=== PATIENT | female | born 1940 | race Caucasian/White ===

== ENCOUNTER → 2017-09-23 | Outpatient (CLI) | payer MEDICARE, MEDICAID, SELFPAY | PROVIDERS: Visit Provider Internal Medicine Nephrology | DX: N18.3 Chronic kidney disease, stage 3 (moderate) (principal) | CPT/HCPCS: 36415; 80069; 81001; 82306; 82570; 83970; 84155; 85025 ==

== ENCOUNTER → 2017-09-30 13:27 | Outpatient (POV) | payer MEDICARE, MEDICAID, SELFPAY | PROVIDERS: PCP Family Medicine; Visit Provider Internal Medicine Nephrology | DX: Z00.00 Encounter for general adult medical examination without abnormal findings (principal) ==

== ENCOUNTER → 2017-10-18 11:19 | Outpatient (POV) | payer MEDICARE, MEDICAID, SELFPAY ==
[2017-10-18 12:28] LABS: Eosinophils # 0.3 K/mm3 (0.0-0.4); Eosinophils % 8.7 % (0.1-12.0); Hematocrit 31.3 % (37.0-47.0); Hemoglobin 9.8 g/dL (12.2-16.2); Lymphocytes # 0.5 K/mm3 (0.7-4.5); Lymphocytes % 13.7 K/mm3 (10-50); Mean Corpuscular HGB Conc 31.3 g/dL (31.8-35.4); Mean Corpuscular Hemoglobin 30.9 pg (27.0-31.2); Mean Corpuscular Volume 98.5 fl (81-99); Mean Platelet Volume 8.3 fl (7.4-10.4); Monocytes # 0.2 K/mm3 (0.1-1.0); Monocytes % 4.2 % (1.7-9.3); Neutrophils # 2.8 K/mm3 (1.8-7.8); Neutrophils % 72.4 % (37.0-80.0); Platelet Count 147 K/mm3 (142-424); Red Blood Count 3.18 M/mm3 (4.20-5.40); Red Cell Distribution Width 14.4 % (11.5-17.5); White Blood Count 3.8 K/mm3 (4.8-10.8)
[2017-10-18 12:31] LABS: INR 1.01 (0.9-1.1); Prothrombin Time 10.9 seconds (9.4-11.8)
[2017-10-18 12:43] LABS: Ammonia 15 umol/L (19-54)
[2017-10-18 13:35] LABS: Albumin Level 2.8 gm/dL (3.4-5.0); Anion Gap 13.1 mEq/L (5-15); Blood Urea Nitrogen 17 mg/dL (7-18); Calcium 8.3 mg/dL (8.5-10.1); Carbon Dioxide 26 mmol/L (21.0-32.0); Chloride 104 mmol/L (98-107); Creatinine,Serum 1.31 mg/dL (0.55-1.02); Estimated Glomerular Filt Rate 39 ml/min (>60); GFR (African American) 48 ML/MIN (>60); Glucose 96 mg/dL (74-106); Potassium 4.1 mmoL/L (3.5-5.1); Sodium 139 mmol/L (136-145)
[2017-10-18 14:29] LABS: Alanine Aminotransferase 24 U/L (12-78); Albumin/Globulin Ratio 0.8 (1.1-1.8); Alkaline Phosphatase 77 U/L (46-116); Aspartate Amino Transferase 29 U/L (15-37); Bilirubin,Total 0.6 mg/dL (0.2-1.0); Ferritin 34 ng/mL (8-388); Globulin 3.7 gm/dl (1.3-3.2); Total Protein,Serum 6.5 gm/dL (6.4-8.2)
[2017-10-19 08:28] LABS: Iron 28 ug/dL (27-139); UIBC 254 ug/dL (118-369)
[2017-10-19 13:37] LABS: Iron Saturation 10 % (15-55)
[2017-10-21 08:51] LABS: Zinc 54 ug/dL (56-134)
== END ==
PROVIDERS: Visit Provider Nurse Practitioner Acute Care
DX: E78.4 Other hyperlipidemia (principal)
CPT/HCPCS: 36415; 80053; 82140; 82728; 83550; 84630; 85025; 85610

== ENCOUNTER → 2017-10-26 13:16 | Outpatient (CLI) | payer MEDICARE, MEDICAID, SELFPAY ==
--- NOTE | 2017-10-26 13:28 | US_ITS ---
US abdomen limited CLINICAL INDICATION: ITS.REASON: CIRRHOSIS, ASCITES ORDERING PHYSICIAN: Leydi Floyd PATIENT AGE: 77 years COMPARISON: None FINDINGS: The patient was scheduled for ultrasound-guided paracentesis. However, there was only a small amount of ascites noted in the right paracolic gutter. There was not a significant amount of ascites that would preclude paracentesis IMPRESSION: Small amount of ascites noted in the right paracolic gutter
== END ==
PROVIDERS: PCP Family Medicine; Visit Provider Nurse Practitioner Acute Care
DX: R18.8 Other ascites (principal); K74.60 Unspecified cirrhosis of liver
CPT/HCPCS: 49083; 76705

== ENCOUNTER → 2017-11-29 08:42 | Outpatient (POV) | payer MEDICARE, MEDICAID, SELFPAY | PROVIDERS: PCP Family Medicine; Visit Provider Nurse Practitioner Acute Care | DX: Z00.00 Encounter for general adult medical examination without abnormal findings (principal) ==

== ENCOUNTER → 2018-01-14 09:46 | Outpatient (CLI) | payer MEDICARE, MEDICAID, SELFPAY ==
[2018-01-14 10:21] LABS: Basophils % 0.7 % (0.1-2.0); Eosinophils # 0.5 K/mm3 (0.0-0.4); Eosinophils % 12.8 % (0.1-12.0); Hematocrit 36.6 % (37.0-47.0); Hemoglobin 11.2 g/dL (12.2-16.2); Lymphocytes # 0.5 K/mm3 (0.7-4.5); Lymphocytes % 14.3 K/mm3 (10-50); Mean Corpuscular HGB Conc 30.5 g/dL (31.8-35.4); Mean Corpuscular Hemoglobin 30.8 pg (27.0-31.2); Mean Platelet Volume 7.7 fl (7.4-10.4); Monocytes # 0.2 K/mm3 (0.1-1.0); Monocytes % 5.2 % (1.7-9.3); Neutrophils # 2.4 K/mm3 (1.8-7.8); Neutrophils % 66.9 % (37.0-80.0); Platelet Count 132 K/mm3 (142-424); Red Blood Count 3.63 M/mm3 (4.20-5.40); Red Cell Distribution Width 14.6 % (11.5-17.5); White Blood Count 3.5 K/mm3 (4.8-10.8)
[2018-01-14 10:25] LABS: INR 1.07 (0.9-1.1); Prothrombin Time 11.6 seconds (9.4-11.8)
[2018-01-14 11:37] LABS: Ammonia < 10 umol/L (19-54)
[2018-01-14 12:24] LABS: Alanine Aminotransferase 29 U/L (12-78); Albumin Level 2.4 gm/dL (3.4-5.0); Albumin/Globulin Ratio 0.6 (1.1-1.8); Alkaline Phosphatase 94 U/L (46-116); Anion Gap 11.9 mEq/L (5-15); Aspartate Amino Transferase 32 U/L (15-37); Bilirubin,Total 0.5 mg/dL (0.2-1.0); Blood Urea Nitrogen 26 mg/dL (7-18); Calcium 8.5 mg/dL (8.5-10.1); Carbon Dioxide 28 mmol/L (21.0-32.0); Chloride 103 mmol/L (98-107); Creatinine,Serum 1.67 mg/dL (0.55-1.02); Estimated Glomerular Filt Rate 30 ml/min (>60); Ferritin 45 ng/mL (8-388); GFR (African American) 36 ML/MIN (>60); Globulin 3.8 gm/dl (1.3-3.2); Glucose 112 mg/dL (74-106); Potassium 4.9 mmoL/L (3.5-5.1); Sodium 138 mmol/L (136-145); Total Protein,Serum 6.2 gm/dL (6.4-8.2)
[2018-01-15 08:22] LABS: Iron 82 ug/dL (27-139); UIBC 191 ug/dL (118-369)
[2018-01-16 18:48] LABS: Iron Saturation 30 % (15-55)
[2018-01-18 06:04] LABS: Zinc 44 ug/dL (56-134)
== END ==
PROVIDERS: Visit Provider Nurse Practitioner Acute Care
DX: Z79.01 Long term (current) use of anticoagulants (principal); K74.69 Other cirrhosis of liver
CPT/HCPCS: 36415; 80053; 82140; 82728; 83550; 84630; 85025; 85610

== ENCOUNTER → 2018-01-31 14:17 | Outpatient (POV) | payer MEDICARE, MEDICAID, SELFPAY | PROVIDERS: Visit Provider Nurse Practitioner Acute Care | DX: Z00.00 Encounter for general adult medical examination without abnormal findings (principal) ==

== ENCOUNTER → 2018-02-01 09:28 | Outpatient (CLI) | payer MEDICARE, MEDICAID, SELFPAY ==
--- NOTE | 2018-02-01 09:47 | US_ITS ---
US abdomen limited: HISTORY: ITS.REASON: ASCITES ORDERING PHYSICIAN: Leydi Floyd PATIENT AGE: 77 years COMPARISON: 10/26/2017 FINDINGS: The patient was scheduled for an ultrasound-guided paracentesis. However, only a scant amount of ascites was evident not amenable to drainage. There is a large right pleural effusion. IMPRESSION: 1. Only minimal amount ascites present not amenable to drainage. 2. Large right pleural effusion
== END ==
PROVIDERS: Visit Provider Nurse Practitioner Acute Care
DX: R18.8 Other ascites (principal)
CPT/HCPCS: 76705

== ENCOUNTER → 2018-02-07 16:27 | Outpatient (REF) | payer MEDICARE, MEDICAID, SELFPAY ==
[2018-02-11 16:49] LABS: Occult Blood,Stool Positive (Negative)
== END ==
LOC: LAB 16:27
PROVIDERS: Visit Provider Nurse Practitioner Acute Care
DX: K74.69 Other cirrhosis of liver (principal)
CPT/HCPCS: 82272; G0328

== ENCOUNTER → 2018-02-08 16:23 | Outpatient (REF) | payer MEDICARE, MEDICAID, SELFPAY ==
[2018-02-11 16:48] LABS: Occult Blood,Stool Positive (Negative)
== END ==
LOC: LAB 16:23
PROVIDERS: Visit Provider Nurse Practitioner Acute Care
DX: K74.69 Other cirrhosis of liver (principal)
CPT/HCPCS: 82272; G0328

== ENCOUNTER → 2018-02-09 16:17 | Outpatient (REF) | payer MEDICARE, MEDICAID, SELFPAY ==
[2018-02-11 16:48] LABS: Occult Blood,Stool Positive (Negative)
== END ==
LOC: LAB 16:17
PROVIDERS: Visit Provider Nurse Practitioner Acute Care
DX: K74.69 Other cirrhosis of liver (principal)
CPT/HCPCS: 82272; G0328

== ENCOUNTER → 2018-02-21 10:19 | Outpatient (CLI) | payer MEDICARE, MEDICAID, SELFPAY ==
[2018-02-21 10:25] LABS: Microscopic, Urine URINE MICROSCOPIC (MICROSCOPIC)
[2018-02-21 10:43] LABS: Basophils % 0.6 % (0.1-2.0); Eosinophils # 0.2 K/mm3 (0.0-0.4); Eosinophils % 4.9 % (0.1-12.0); Hematocrit 33.3 % (37.0-47.0); Hemoglobin 9.9 g/dL (12.2-16.2); Lymphocytes # 0.6 K/mm3 (0.7-4.5); Lymphocytes % 11.9 K/mm3 (10-50); Mean Corpuscular HGB Conc 29.6 g/dL (31.8-35.4); Mean Corpuscular Hemoglobin 30.1 pg (27.0-31.2); Mean Corpuscular Volume 101.5 fl (81-99); Monocytes # 0.3 K/mm3 (0.1-1.0); Monocytes % 6.8 % (1.7-9.3); Neutrophils # 3.5 K/mm3 (1.8-7.8); Neutrophils % 75.8 % (37.0-80.0); Platelet Count 140 K/mm3 (142-424); Red Blood Count 3.28 M/mm3 (4.20-5.40); Red Cell Distribution Width 16.2 % (11.5-17.5); White Blood Count 4.6 K/mm3 (4.8-10.8)
[2018-02-21 11:18] LABS: Appearance,Urine SL CLOUDY (Clear); Bilirubin,Urine Negative (Negative); Blood, Urine Negative (Negative); Color,Urine YELLOW (Yellow); Glucose,Urine (UA) Negative (Negative); Ketones,Urine Negative (Negative); Leukocyte Esterase,Urine Negative (Negative); Nitrate,Urine Negative (Negative); Protein,Urine TRACE (Negative); Urobilinogen,Urine 0.2 EU/dl (0.2)
[2018-02-21 11:31] LABS: Creatinine,Urine Random 280 mg/dL (20-320); Total Protein,Urine Random 8.5 mg/dL (0.0-11.9)
[2018-02-21 12:19] LABS: Bacteria,Urine 3+ /lpf; Mucus,Urine 4+ /lpf
[2018-02-21 12:47] LABS: Albumin Level 2.3 gm/dL (3.4-5.0); Anion Gap 11.2 mEq/L (5-15); Blood Urea Nitrogen 28 mg/dL (7-18); Calcium 8.6 mg/dL (8.5-10.1); Carbon Dioxide 29 mmol/L (21.0-32.0); Chloride 103 mmol/L (98-107); Creatinine,Serum 1.54 mg/dL (0.55-1.02); Estimated Glomerular Filt Rate 33 ml/min (>60); GFR (African American) 40 ML/MIN (>60); Glucose 90 mg/dL (74-106); Phosphorous 3.9 mg/dL (2.4-4.9); Potassium 5.2 mmoL/L (3.5-5.1); Sodium 138 mmol/L (136-145)
== END ==
PROVIDERS: Visit Provider Internal Medicine Nephrology
DX: N18.3 Chronic kidney disease, stage 3 (moderate) (principal); R82.90 Unspecified abnormal findings in urine
CPT/HCPCS: 36415; 80069; 81001; 82570; 84155; 85025; 87086

== ENCOUNTER → 2018-02-28 12:41 | Outpatient (POV) | payer MEDICARE, MEDICAID, SELFPAY | PROVIDERS: Visit Provider Internal Medicine Nephrology | DX: Z00.00 Encounter for general adult medical examination without abnormal findings (principal) ==

== ENCOUNTER → 2018-03-15 09:10 | Outpatient (CLI) | payer MEDICARE, MEDICAID, SELFPAY ==
--- NOTE | 2018-03-15 09:16 | CA_ITS ---
PROCEDURE: 2-D M-mode and color Doppler study INDICATIONS FOR THE TEST: Chest pain COPD Heart Murmur Tobacco Smoking Palpitations Fatigue Syncope EdemaX HypertensionXDiabetes Mellitus Rheumatic Fever SOBXDOE Obesity Hyperlipidemia Family History HD Additional History LARGE PLEURAL EFF,ACITES,LIVER DISEASE TDS SECONDARY TO ABD DISTENTION ACITES PATIENT INFORMATION HEIGHT: 64 WEIGHT:175 GENDER: Female B/P:110/70 2-D/M-MODE INTERPRETATION: 2-D MEASUREMENTS OBSERVED VALUES IN CMS Right Ventricular Dimension (RVDd) 3.0 Interventricular Septum (Thickness)(IVsd) 1.2 Left Ventricular Internal Dimensions(LVIDd) 4.5 Left Ventricular Posterior Wall (Thickness)(LVPWd) 1.2 Aortic Root 2.7 Aortic Cusp Separation 1.4 Left Atrial Dimensions (LAD) 3.8 2D 1. Left atrium is mildly enlarged, left ventricle is normal size, mild concentric left ventricular hypertrophy, visually estimated ejection fraction 55% with no obvious regional wall motion abnormality. 2. The right atrium and right ventricle are mildly enlarged with normal contractility. 3. The aortic valve is minimally thickened and fibrosed. 4. The mitral and tricuspid valvular grossly normal. 5. The pulmonic valve is poorly visualized. 6. No significant pericardial effusion noted. DOPPLER INTERROGATION: Doppler interrogation of the aortic, mitral and tricuspid valvular presence of mild mitral and tricuspid regurgitation, calculated right ventricular systolic pressure 38 mmHg consistent with mild pulmonary hypertension, grade 1 diastolic dysfunction seen with tissue Doppler evidence of raised left atrial pressure. CONCLUSION: 1. Mild biatrial enlargement, normal left ventricular size, mild concentric left ventricular hypertrophy, visually estimated ejection fraction 55% with no signal wall motion abnormality, grade 1 diastolic dysfunction seen with tissue Doppler evidence of raised left atrial pressure. 2. Mildly enlarged with normal contractility. 3. Mild mitral and tricuspid regurgitation, calculated right ventricular systolic pressure is 38 mmHg consistent with mild pulmonary hypertension. 4. No significant pericardial effusion noted.
== END ==
PROVIDERS: PCP Family Medicine; Visit Provider Family Medicine
DX: R06.02 Shortness of breath (principal); R60.9 Edema, unspecified
CPT/HCPCS: 93306

== ENCOUNTER → 2018-04-18 09:40 | Outpatient (POV) | payer MEDICARE, MEDICAID, SELFPAY ==
[2018-04-18 11:24] LABS: Ammonia 15 umol/L (19-54); INR 1.11 (0.9-1.1); Prothrombin Time 11.4 seconds (9.4-11.8)
[2018-04-18 11:45] LABS: Basophils % 0.6 % (0.1-2.0); Eosinophils # 0.1 K/mm3 (0.0-0.4); Hematocrit 36.2 % (37.0-47.0); Lymphocytes # 0.5 K/mm3 (0.7-4.5); Lymphocytes % 7.2 K/mm3 (10-50); Mean Corpuscular HGB Conc 30.4 g/dL (31.8-35.4); Mean Corpuscular Hemoglobin 29.9 pg (27.0-31.2); Mean Corpuscular Volume 98.6 fl (81-99); Mean Platelet Volume 7.4 fl (7.4-10.4); Monocytes # 0.4 K/mm3 (0.1-1.0); Monocytes % 5.8 % (1.7-9.3); Neutrophils # 5.5 K/mm3 (1.8-7.8); Neutrophils % 84.4 % (37.0-80.0); Platelet Count 184 K/mm3 (142-424); Red Blood Count 3.68 M/mm3 (4.20-5.40); Red Cell Distribution Width 14.1 % (11.5-17.5); White Blood Count 6.5 K/mm3 (4.8-10.8)
[2018-04-19 07:22] LABS: Alanine Aminotransferase 33 U/L (12-78); Albumin Level 2.1 gm/dL (3.4-5.0); Albumin/Globulin Ratio 0.5 (1.1-1.8); Alkaline Phosphatase 146 U/L (46-116); Anion Gap 12.6 mEq/L (5-15); Aspartate Amino Transferase 25 U/L (15-37); Bilirubin,Total 0.9 mg/dL (0.2-1.0); Blood Urea Nitrogen 27 mg/dL (7-18); Calcium 8.1 mg/dL (8.5-10.1); Carbon Dioxide 26 mmol/L (21.0-32.0); Chloride 103 mmol/L (98-107); Creatinine,Serum 1.88 mg/dL (0.55-1.02); Estimated Glomerular Filt Rate 26 ml/min (>60); GFR (African American) 31 ML/MIN (>60); Globulin 4.2 gm/dl (1.3-3.2); Glucose 84 mg/dL (74-106); Potassium 5.6 mmoL/L (3.5-5.1); Sodium 136 mmol/L (136-145); Total Protein,Serum 6.3 gm/dL (6.4-8.2)
== END ==
PROVIDERS: PCP Family Medicine; Visit Provider Nurse Practitioner Acute Care
DX: K74.69 Other cirrhosis of liver (principal)
CPT/HCPCS: 36415; 80053; 82140; 85025; 85610

== ENCOUNTER 2018-04-21 10:14 | Outpatient (CLI) | payer MEDICARE, MEDICAID, SELFPAY ==
--- NOTE | 2018-04-21 10:30 | US_ITS ---
US biopsy guidance ULTRASOUND-GUIDED PARACENTESIS ordering physicia dr. Rizzo/Leydi Ordering Physician: Leydi Floyd Patient Age: 77 years: Female HISTORY: ITS.REASON: ASCITESrecurrent TECHNIQUE: Limited ultrasound abdomen followed by ultrasound-guided paracentesis FINDINGS AND PROCEDURE: ULTRASOUND abdomen .. Prominent ascites is encountered a pocket at the right abdomen towards right flank was identified as most optimal. .These images also determined the best approach for access to perform aspiration biopsy of this nodule. Scanning by Dr. Traore ULTRASOUND-GUIDED PARACENTESIS. Following sterile preparation as well as local skin, & deeper placement of Xylocaine anesthetic a small 2 mm ronan was made in the skin . The through this the paracentesis drainage needle/catheter system was introduced. Needle was withdrawn leaving the catheter and place. Clear yellowish fluid was withdrawn. Total over 6 L of fluid removed at this setting.. No laboratory obtained on this fluid-therapeutic paracentesis Given this volume of ascites removed the patient was then sent to outpatient for albumin as per GI consult protocol . Patient tolerated procedure well. No complications encountered IMPRESSION: . Successful paracentesis. Patient tolerated well. Over 6 L of ascites removed at this visit. ... With this patient was then sent to outpatient for albumin infusion as per GI consult cortical
[2018-04-21 12:35] VITALS: BP 127/64; PULSE 64; RESP 18; TEMP 36.7; O2SAT 99
[2018-04-21 13:10] VITALS: BP 110/56; PULSE 80; RESP 18; O2SAT 99
== END 2018-04-21 13:15 | disposition home or self-care (01) ==
LOC: RAD 10:14 → INF 12:24
PROVIDERS: PCP Family Medicine; Visit Provider Nurse Practitioner Acute Care
DX: R18.8 Other ascites (principal)
CPT/HCPCS: 49083; 76942; 96365

== ENCOUNTER 2018-05-19 12:44 | Outpatient (CLI) | payer MEDICARE, MEDICAID, SELFPAY ==
[2018-05-19] VITALS (7 sets, daily range): BP systolic 102–112; BP diastolic 53–62; PULSE 55–65; RESP 18; TEMP 36.3–36.4; O2SAT 94–96; BMI 29.5
--- NOTE | 2018-05-19 12:56 | US_ITS ---
US biopsy/paracentesis under ultrasound guidance HISTORY: ITS.REASON: ASCITIS ORDERING PHYSICIAN: Leydi Floyd PATIENT AGE: 78 years Comparison: None PROCEDURE: Following obtaining informed consent and after appropriate Time out, under aseptic conditions and local anesthesia with 1% buffered lidocaine using sonographic guidance a 4 Citizen [place] one-step catheter was inserted into the largest pocket of fluid localized in the right lower quadrant. Approximately 7000 cc of serous fluid was drained. The patient tolerated the procedure well and left the radiology suite in stable condition. Patient then went to outpatient observation for albumin infusion per GI protocol IMPRESSION: Successful sonographic guided paracentesis without complication
== END 2018-05-19 17:39 | disposition home or self-care (01) ==
PROVIDERS: PCP Family Medicine; Visit Provider Nurse Practitioner Acute Care
DX: R18.8 Other ascites (principal)
CPT/HCPCS: 49083; 76942; 96365; 96366; P9047

== ENCOUNTER → 2018-05-28 10:52 | Outpatient (CLI) | payer MEDICARE, MEDICAID, SELFPAY ==
[2018-05-28 12:08] LABS: Basophils # 0.1 K/mm3 (0-0.2); Basophils % 0.7 % (0.1-2.0); Eosinophils # 0.2 K/mm3 (0.0-0.4); Eosinophils % 3.2 % (0.1-12.0); Hematocrit 31.4 % (37.0-47.0); Hemoglobin 9.5 g/dL (12.2-16.2); Lymphocytes # 0.6 K/mm3 (0.7-4.5); Lymphocytes % 9.2 K/mm3 (10-50); Mean Corpuscular HGB Conc 30.3 g/dL (31.8-35.4); Mean Corpuscular Hemoglobin 30.2 pg (27.0-31.2); Mean Corpuscular Volume 99.6 fl (81-99); Mean Platelet Volume 7.6 fl (7.4-10.4); Monocytes # 0.4 K/mm3 (0.1-1.0); Monocytes % 5.5 % (1.7-9.3); Neutrophils # 5.2 K/mm3 (1.8-7.8); Neutrophils % 81.5 % (37.0-80.0); Platelet Count 190 K/mm3 (142-424); Red Blood Count 3.15 M/mm3 (4.20-5.40); Red Cell Distribution Width 15.6 % (11.5-17.5); White Blood Count 6.4 K/mm3 (4.8-10.8)
[2018-05-28 12:59] LABS: Albumin Level 2.1 gm/dL (3.4-5.0); Blood Urea Nitrogen 43 mg/dL (7-18); Calcium 8.1 mg/dL (8.5-10.1); Carbon Dioxide 26 mmol/L (21.0-32.0); Chloride 104 mmol/L (98-107); Creatinine,Serum 2.27 mg/dL (0.55-1.02); Estimated Glomerular Filt Rate 21 ml/min (>60); GFR (African American) 25 ML/MIN (>60); Glucose 96 mg/dL (74-106); Phosphorous 3.9 mg/dL (2.4-4.9)
[2018-05-28 13:05] LABS: Anion Gap 12.2 mEq/L (5-15); Sodium 136 mmol/L (136-145)
[2018-05-28 13:15] LABS: Potassium 6.2 mmoL/L (3.5-5.1)
== END ==
PROVIDERS: PCP Family Medicine; Visit Provider Internal Medicine Nephrology
DX: N18.3 Chronic kidney disease, stage 3 (moderate) (principal)
CPT/HCPCS: 36415; 80069; 85025

== ENCOUNTER → 2018-06-02 13:30 | Outpatient (CLI) | payer MEDICARE, MEDICAID, SELFPAY ==
[2018-06-02 13:34] LABS: Microscopic, Urine URINE MICROSCOPIC (MICROSCOPIC)
[2018-06-02 13:55] LABS: Appearance,Urine SL CLOUDY (Clear); Bilirubin,Urine Negative (Negative); Blood, Urine TRACE-I (Negative); Color,Urine YELLOW (Yellow); Glucose,Urine (UA) Negative (Negative); Ketones,Urine Negative (Negative); Leukocyte Esterase,Urine TRACE (Negative); Nitrate,Urine POSITIVE (Negative); PH,Urine 5.5 (5.0-8.5); Protein,Urine Negative (Negative); Specific Gravity, Urine >= 1.030 (1.005-1.030); Urobilinogen,Urine 0.2 EU/dl (0.2)
[2018-06-02 14:17] LABS: Bacteria,Urine 3+ /lpf; Hyaline Casts,Urine Occasional #/lpf (0); RBC,Urine Occasional #/hpf (0-3); Squamous Epithelial Cell,Urine 20-50 #/hpf (0-5)
== END ==
PROVIDERS: PCP Family Medicine; Visit Provider Internal Medicine Nephrology
DX: N18.3 Chronic kidney disease, stage 3 (moderate) (principal); R82.90 Unspecified abnormal findings in urine
CPT/HCPCS: 81001; 87086; 87088; 87186

== ENCOUNTER → 2018-06-02 15:26 | Outpatient (POV) | payer MEDICARE, MEDICAID, SELFPAY | PROVIDERS: PCP Family Medicine; Visit Provider Internal Medicine Nephrology | DX: Z00.00 Encounter for general adult medical examination without abnormal findings (principal) ==

== ENCOUNTER → 2018-06-04 10:33 | Outpatient (CLI) | payer MEDICARE, MEDICAID, SELFPAY ==
[2018-06-04 11:30] LABS: Anion Gap 11.2 mEq/L (5-15); Blood Urea Nitrogen 38 mg/dL (7-18); Carbon Dioxide 26 mmol/L (21.0-32.0); Chloride 105 mmol/L (98-107); Creatinine,Serum 2.29 mg/dL (0.55-1.02); Estimated Glomerular Filt Rate 21 ml/min (>60); Ferritin 42 ng/mL (8-388); GFR (African American) 25 ML/MIN (>60); Glucose 94 mg/dL (74-106); Sodium 136 mmol/L (136-145)
[2018-06-04 12:05] LABS: Potassium 6.2 mmoL/L (3.5-5.1)
[2018-06-05 06:41] LABS: Iron 37 ug/dL (27-139); UIBC 168 ug/dL (118-369)
[2018-06-07 08:27] LABS: Iron Saturation 18 % (15-55)
== END ==
PROVIDERS: PCP Family Medicine; Visit Provider Internal Medicine Nephrology
DX: D63.8 Anemia in other chronic diseases classified elsewhere (principal); E87.5 Hyperkalemia
CPT/HCPCS: 36415; 80048; 82728; 83540; 83550

== ENCOUNTER 2018-06-07 08:58 | Outpatient (CLI) | payer MEDICARE, MEDICAID, SELFPAY ==
[2018-06-07] VITALS (7 sets, daily range): BP systolic 118–129; BP diastolic 61–68; PULSE 61–68; RESP 18; TEMP 36.4; O2SAT 97–98; BMI 29.5
--- NOTE | 2018-06-07 09:04 | US_ITS ---
US biopsy guidance HISTORY: ITS.REASON: ASCITES ORDERING PHYSICIAN: Alfonso Barnhart MD PATIENT AGE: 78 years Comparison: None PROCEDURE: Following obtaining informed consent and after appropriate Time out, under aseptic conditions and local anesthesia with 1% buffered lidocaine using sonographic guidance a 4 [place] one-step catheter was inserted into the largest pocket of fluid localized in the right lower quadrant. Approximately 8500 cc of cloudy fluid was drained. The patient tolerated the procedure well and left the radiology suite in stable condition. The patient was then sent to outpatient observation for albumin infusion per Dr. Barnhart protocol IMPRESSION: Successful sonographic guided paracentesis without complication
[2018-06-07 12:13] LABS: Potassium 5.5 mmoL/L (3.5-5.1)
== END 2018-06-07 15:05 | disposition home or self-care (01) ==
LOC: RAD 08:59 → INF 11:40
PROVIDERS: PCP Family Medicine; Visit Provider Internal Medicine Gastroenterology
DX: R18.8 Other ascites (principal)
CPT/HCPCS: 49083; 76942; 84132; 96365; 96366; P9047

== ENCOUNTER → 2018-06-09 08:15 | Outpatient (CLI) | payer MEDICARE, MEDICAID, SELFPAY ==
[2018-06-09 08:33] LABS: Blood Urea Nitrogen 36 mg/dL (7-18); Creatinine,Serum 1.97 mg/dL (0.55-1.02); Estimated Glomerular Filt Rate 25 ml/min (>60); GFR (African American) 30 ML/MIN (>60)
--- NOTE | 2018-06-09 08:54 | MR_ITS ---
MR abdomen wo con HISTORY: Cirrhosis, abdominal swelling ITS.REASON: CIRRHOSIS, ASCITIES ORDERING PHYSICIAN: Alfonso Barnhart MD PATIENT AGE: 78 years Comparison: None TECHNIQUE: Standard multiplanar multiecho sequences are performed without contrast. FINDINGS: The study very limited technically due to motion artifact. EXAM was also performed without contrast due to patient's renal function status . There is a extensive amount of ascites. The gallbladder is distended with gallstone noted measuring up to 2 cm. No biliary dilatation. The liver has a shrunken irregular appearance consistent with cirrhosis. No obvious hepatic mass. The spleen has an unremarkable appearance. There is a 2.9 x 1.3 cm cystic area within the region of the body/tail the pancreas and an additional cystic area in the region of the head of the pancreas at 13 mm. This is not readily apparent on the previous CT scan of 03/17/2017. Would recommend dedicated CT of the liver and pancreas for further evaluation due to the imaging limitations on today's exam There is mild diffuse small bowel wall thickening which may be seen with cirrhosis and hypoproteinemia. IMPRESSION: 1. Cirrhosis with ascites and mild small bowel wall thickening which may be seen with cirrhosis. 2. Distended gallbladder with cholelithiasis. 3. Cystic areas within the head and body of the pancreas now suspected. Recommend confirmation with CT due to the extreme limitations of today's exam.
== END ==
PROVIDERS: PCP Family Medicine; Visit Provider Internal Medicine Gastroenterology
DX: K74.60 Unspecified cirrhosis of liver (principal); R18.8 Other ascites
CPT/HCPCS: 36415; 74181; 82565; 84520

== ENCOUNTER → 2018-06-27 09:59 | Outpatient (CLI) | payer MEDICARE, MEDICAID, SELFPAY ==
[2018-06-27 10:08] LABS: Microscopic, Urine URINE MICROSCOPIC (MICROSCOPIC)
[2018-06-27 10:30] LABS: Basophils % 0.5 % (0.1-2.0); Eosinophils # 0.4 K/mm3 (0.0-0.4); Eosinophils % 7.5 % (0.1-12.0); Hematocrit 29.7 % (37.0-47.0); Hemoglobin 9.2 g/dL (12.2-16.2); Lymphocytes # 0.6 K/mm3 (0.7-4.5); Mean Corpuscular HGB Conc 30.8 g/dL (31.8-35.4); Mean Corpuscular Hemoglobin 31.3 pg (27.0-31.2); Mean Corpuscular Volume 101.5 fl (81-99); Mean Platelet Volume 7.9 fl (7.4-10.4); Monocytes # 0.2 K/mm3 (0.1-1.0); Monocytes % 5.1 % (1.7-9.3); Neutrophils # 3.6 K/mm3 (1.8-7.8); Neutrophils % 74.9 % (37.0-80.0); Platelet Count 157 K/mm3 (142-424); Red Blood Count 2.93 M/mm3 (4.20-5.40); Red Cell Distribution Width 15.5 % (11.5-17.5); White Blood Count 4.8 K/mm3 (4.8-10.8)
[2018-06-27 10:33] LABS: Appearance,Urine SL CLOUDY (Clear); Bilirubin,Urine Negative (Negative); Blood, Urine Negative (Negative); Color,Urine YELLOW (Yellow); Glucose,Urine (UA) Negative (Negative); Ketones,Urine Negative (Negative); Leukocyte Esterase,Urine Negative (Negative); Nitrate,Urine POSITIVE (Negative); PH,Urine 5.5 (5.0-8.5); Protein,Urine Negative (Negative); Specific Gravity, Urine >= 1.030 (1.005-1.030); Urobilinogen,Urine 0.2 EU/dl (0.2)
[2018-06-27 10:35] LABS: Creatinine,Urine Random 225 mg/dL (20-320); Total Protein,Urine Random 12.7 mg/dL (0.0-11.9)
[2018-06-27 10:37] LABS: Ammonia 13 umol/L (19-54)
[2018-06-27 10:41] LABS: Bacteria,Urine 4+ /lpf
[2018-06-27 10:54] LABS: INR 1.17 (0.9-1.1)
[2018-06-27 11:03] LABS: Alanine Aminotransferase 28 U/L (12-78); Albumin Level 2.2 gm/dL (3.4-5.0); Albumin/Globulin Ratio 0.6 (1.1-1.8); Alkaline Phosphatase 171 U/L (46-116); Amylase 48 U/L (25-125); Anion Gap 14.3 mEq/L (5-15); Anion Gap 14.6 mEq/L (5-15); Aspartate Amino Transferase 23 U/L (15-37); Bilirubin,Total 1.1 mg/dL (0.2-1.0); Blood Urea Nitrogen 34 mg/dL (7-18); Calcium 8.1 mg/dL (8.5-10.1); Carbon Dioxide 23 mmol/L (21.0-32.0); Carbon Dioxide 24 mmol/L (21.0-32.0); Chloride 102 mmol/L (98-107); Creatinine,Serum 2.07 mg/dL (0.55-1.02); Creatinine,Serum 2.08 mg/dL (0.55-1.02); Estimated Glomerular Filt Rate 23 ml/min (>60); GFR (African American) 28 ML/MIN (>60); Globulin 3.8 gm/dl (1.3-3.2); Glucose 96 mg/dL (74-106); Glucose 98 mg/dL (74-106); Lipase 333 u/L (73-393); Phosphorous 4.1 mg/dL (2.4-4.9); Potassium 5.3 mmoL/L (3.5-5.1); Potassium 5.6 mmoL/L (3.5-5.1); Sodium 134 mmol/L (136-145); Sodium 135 mmol/L (136-145)
[2018-06-29 11:29] LABS: AFP, Tumor Marker 0.9 ng/mL (0.0-8.3); CA 19-9 20 U/mL (0-35)
== END ==
PROVIDERS: Nurse Practitioner Acute Care; PCP Family Medicine; Visit Provider Internal Medicine Nephrology
DX: R19.09 Other intra-abdominal and pelvic swelling, mass and lump; K74.60 Unspecified cirrhosis of liver; N18.3 Chronic kidney disease, stage 3 (moderate); R82.90 Unspecified abnormal findings in urine; E87.5 Hyperkalemia
CPT/HCPCS: 36415; 80053; 80069; 81001; 82105; 82140; 82150; 82570; 83690; 84155; 85025; 85610; 86316; 87086; 87088; 87186

== ENCOUNTER → 2018-06-30 15:45 | Outpatient (POV) | payer MEDICARE, MEDICAID, SELFPAY | PROVIDERS: PCP Family Medicine; Visit Provider Internal Medicine Nephrology | DX: Z00.00 Encounter for general adult medical examination without abnormal findings (principal) ==

== ENCOUNTER 2018-07-06 08:56 | Outpatient (CLI) | payer MEDICARE, MEDICAID, SELFPAY ==
[2018-07-06] VITALS (8 sets, daily range): BP systolic 104–110; BP diastolic 42–55; PULSE 64–69; RESP 18; TEMP 36.7; O2SAT 98–100
--- NOTE | 2018-07-06 09:01 | US_ITS ---
US biopsy guidance HISTORY: ITS.REASON: ASCITES ORDERING PHYSICIAN: Alfonso Barnhart MD PATIENT AGE: 78 years Comparison: None PROCEDURE: Following obtaining informed consent and after appropriate Time out, under aseptic conditions and local anesthesia with 1% buffered lidocaine using sonographic guidance a 4 [place] one-step catheter was inserted into the largest pocket of fluid localized in the right lower quadrant. Approximately 9 mm of cloudy fluid was drained. The patient tolerated the procedure well and left the radiology suite in stable condition. Patient was more comfortable following the paracentesis. Patient was then sent to outpatient observation for albumin infusion per Dr. Barnhart protocol IMPRESSION: Successful sonographic guided paracentesis without complication
--- NOTE | 2018-07-06 09:36 | US_ITS ---
US liver HISTORY: ITS.REASON: ASCITES, CIRRHOSIS ORDERING PHYSICIAN: Alfonso Barnhart MD PATIENT AGE: 78 years COMPARISON: 10/26/2017 FINDINGS: PANCREAS:Unremarkable. No obvious mass or abnormal fluid collection. No ductal dilatation LIVER:The liver is somewhat small with irregular contour and increased coarse echogenicity consistent with cirrhosis. There is appropriate directional blood flow within a nondilated portal vein. Blood flow noted within the hepatic veins. RIGHT KIDNEY:Unremarkable. Normal size and echogenicity. No hydronephrosis GALLBLADDER:Gallbladder is distended with gallstones and mild wall thickening at 4 mm. Common bile duct is normal at 4 mm. ASCITES:Diffuse ascites noted IMPRESSION: Cirrhotic appearing liver with moderate amount of ascites. There is appropriate directional blood flow within the portal vein. Cholelithiasis with mildly distended gallbladder
== END 2018-07-06 16:10 | disposition home or self-care (01) ==
LOC: RAD 08:56 → INF 11:33
PROVIDERS: PCP Family Medicine; Visit Provider Internal Medicine Gastroenterology
DX: K74.60 Unspecified cirrhosis of liver (principal); R18.8 Other ascites
CPT/HCPCS: 76705; 76942; 96365; 96366; P9047

== ENCOUNTER → 2018-07-18 09:46 | Outpatient (POV) | payer MEDICARE, MEDICAID, SELFPAY | PROVIDERS: Visit Provider Nurse Practitioner Acute Care | DX: Z00.00 Encounter for general adult medical examination without abnormal findings (principal) ==

== ENCOUNTER 2018-07-21 08:27 | Outpatient (CLI) | payer MEDICARE, MEDICAID, SELFPAY ==
[2018-07-21] VITALS (8 sets, daily range): BP systolic 108–121; BP diastolic 51–74; PULSE 55–67; RESP 18–20; TEMP 36.4–36.6; O2SAT 95–96
--- NOTE | 2018-07-21 08:40 | US_ITS ---
US biopsy guidance HISTORY: ITS.REASON: ASCITES ORDERING PHYSICIAN: Leydi Floyd PATIENT AGE: 78 years Comparison: None PROCEDURE: Following obtaining informed consent and after appropriate Time out, under aseptic conditions and local anesthesia with 1% buffered lidocaine using sonographic guidance a 4 [place] Citizen one-step catheter was inserted into the largest pocket of fluid localized in the right lower quadrant. Approximately 8300 cc of serous fluid was drained. The patient tolerated the procedure well and left the radiology suite in stable condition. IMPRESSION: Successful sonographic guided paracentesis without complication
== END 2018-07-21 14:00 | disposition home or self-care (01) ==
LOC: RAD 08:29 → INF 10:20
PROVIDERS: PCP Family Medicine; Visit Provider Nurse Practitioner Acute Care
DX: R18.8 Other ascites (principal)
CPT/HCPCS: 49083; 76942; 96365; 96366; P9047

== ENCOUNTER 2018-08-04 10:17 | Outpatient (CLI) | payer MEDICARE, MEDICAID, SELFPAY ==
--- NOTE | 2018-08-04 10:24 | US_ITS ---
US biopsy guidance HISTORY: ITS.REASON: PARACENTESIS, ASCITES ORDERING PHYSICIAN: Leydi Floyd PATIENT AGE: 78 years Comparison: None PROCEDURE: Following obtaining informed consent and after appropriate Time out, under aseptic conditions and local anesthesia with 1% buffered lidocaine using sonographic guidance a 4 [place] one-step catheter was inserted into the largest pocket of fluid localized in the right lower quadrant. Approximately 5900 cc of cloudy willis fluid was drained. The patient tolerated the procedure well and left the radiology suite in stable condition.. The patient then went to outpatient for albumin infusion per Dr. Barnhart protocol IMPRESSION: Successful sonographic guided paracentesis without complication
[2018-08-04 11:48] VITALS: BP 124/54; PULSE 60; RESP 18; TEMP 36.6; O2SAT 96
[2018-08-04 12:15] VITALS: BP 107/57; PULSE 60; RESP 18; TEMP 36.6; O2SAT 97
[2018-08-04 12:45] VITALS: BP 112/62; PULSE 62; RESP 20; TEMP 36.6; O2SAT 97
[2018-08-04 13:15] VITALS: BP 121/68; PULSE 64; RESP 18; TEMP 36.6; O2SAT 96
[2018-08-04 13:45] VITALS: BP 108/62; PULSE 65; RESP 20; TEMP 36.5; O2SAT 97
[2018-08-04 14:20] VITALS: BP 112/65; PULSE 60; RESP 18; TEMP 36.6; O2SAT 96
== END 2018-08-04 14:25 | disposition home or self-care (01) ==
LOC: RAD 10:19 → INF 11:30
PROVIDERS: PCP Family Medicine; Visit Provider Nurse Practitioner Acute Care
DX: R18.8 Other ascites (principal)
CPT/HCPCS: 49083; 76942; 96365; 96366; P9047

== ENCOUNTER 2018-08-17 10:17 | Outpatient (CLI) | payer MEDICARE, MEDICAID, SELFPAY ==
--- NOTE | 2018-08-17 10:24 | US_ITS ---
US biopsy guidance HISTORY: ITS.REASON: PARACENTESIS, ASCITES ORDERING PHYSICIAN: Leydi Floyd PATIENT AGE: 78 years Comparison: None PROCEDURE: Following obtaining informed consent and after appropriate Time out, under aseptic conditions and local anesthesia with 1% buffered lidocaine using sonographic guidance a 4 [place] one-step catheter was inserted into the largest pocket of fluid localized in the right lower quadrant. Approximately 5800 mL of light greenish fluid was drained. The patient tolerated the procedure well and left the radiology suite in stable condition. The patient was then sent to outpatient for albumin infusion per Dr. Barnhart protocol IMPRESSION: Successful sonographic guided paracentesis without complication
[2018-08-17 12:45] VITALS: BP 99/58; PULSE 71; RESP 18
[2018-08-17 13:10] VITALS: BP 114/55; PULSE 73; RESP 18
[2018-08-17 13:45] VITALS: BP 95/45; PULSE 71; RESP 18
[2018-08-17 14:17] VITALS: BP 88/41; PULSE 70; RESP 16
[2018-08-17 14:45] VITALS: BP 97/47; PULSE 77; RESP 18
== END 2018-08-17 14:56 | disposition home or self-care (01) ==
LOC: RAD 10:22 → INF 12:25
PROVIDERS: PCP Family Medicine; Visit Provider Nurse Practitioner Acute Care
DX: R18.8 Other ascites (principal)
CPT/HCPCS: 49083; 76942; 96365; 96366

== ENCOUNTER → 2018-08-29 10:39 | Outpatient (CLI) | payer MEDICARE, MEDICAID, SELFPAY ==
[2018-08-29 11:18] LABS: INR 1.28 (0.9-1.1); Prothrombin Time 13.1 seconds (9.4-11.8)
[2018-08-29 11:18] LABS: Basophils % 0.1 % (0.1-2.0); Eosinophils # 0.1 K/mm3 (0.0-0.4); Eosinophils % 1.2 % (0.1-12.0); Lymphocytes # 0.5 K/mm3 (0.7-4.5); Lymphocytes % 5.8 % (10-50); Mean Corpuscular HGB Conc 30.4 g/dL (31.8-35.4); Mean Corpuscular Hemoglobin 32.2 pg (27.0-31.2); Mean Corpuscular Volume 105.9 fl (81-99); Mean Platelet Volume 7.9 fl (7.4-10.4); Monocytes # 0.5 K/mm3 (0.1-1.0); Monocytes % 6.5 % (1.7-9.3); Neutrophils # 6.9 K/mm3 (1.8-7.8); Neutrophils % 86.4 % (37.0-80.0); Platelet Count 110 K/mm3 (142-424); Red Blood Count 2.36 M/mm3 (4.20-5.40); Red Cell Distribution Width 15.2 % (11.5-17.5)
[2018-08-29 11:25] LABS: Hemoglobin 7.6 g/dL (12.2-16.2); MANUAL DIFFERENTIAL MANUAL DIFFERENTIAL (MANUAL DIFF)
[2018-08-29 12:09] LABS: Eosinophils % 2 % (0-3); Lymphocytes % 1 % (10-50); Monocytes % 1 % (2-9); Neutrophils % 94 % (42-76); Platelet Estimate Slight Decrease; Tear Drop Cells 1+; Total Cells Counted 100
[2018-08-29 13:08] LABS: Phosphorous 5.6 mg/dL (2.4-4.9)
[2018-08-29 13:09] LABS: Alanine Aminotransferase 25 U/L (12-78); Albumin Level 2.2 gm/dL (3.4-5.0); Albumin/Globulin Ratio 0.7 (1.1-1.8); Alkaline Phosphatase 154 U/L (46-116); Anion Gap 13.6 mEq/L (5-15); Aspartate Amino Transferase 17 U/L (15-37); Bilirubin,Total 0.8 mg/dL (0.2-1.0); Blood Urea Nitrogen 69 mg/dL (7-18); Calcium 7.7 mg/dL (8.5-10.1); Carbon Dioxide 23 mmol/L (21.0-32.0); Chloride 103 mmol/L (98-107); Estimated Glomerular Filt Rate 12 ml/min (>60); GFR (African American) 15 ML/MIN (>60); Globulin 3.3 gm/dl (1.3-3.2); Glucose 80 mg/dL (74-106); Sodium 133 mmol/L (136-145); Total Protein,Serum 5.5 gm/dL (6.4-8.2)
[2018-08-29 13:13] LABS: Creatinine,Serum 3.63 mg/dL (0.55-1.02); Potassium 6.6 mmoL/L (3.5-5.1)
== END ==
PROVIDERS: Nurse Practitioner Acute Care; Visit Provider Internal Medicine Nephrology
DX: N18.4 Chronic kidney disease, stage 4 (severe) (principal); Z00.00 Encounter for general adult medical examination without abnormal findings; K75.81 Nonalcoholic steatohepatitis (NASH)
CPT/HCPCS: 36415; 80053; 84100; 85007; 85025; 85610

== ENCOUNTER 2018-08-31 13:43 | Inpatient (IN) ==
[2018-08-31 14:05] LABS: Basophils % 0.1 % (0.1-2.0); Eosinophils # 0.1 K/mm3 (0.0-0.4); Eosinophils % 0.5 % (0.1-12.0); Hematocrit 28.3 % (37.0-47.0); Hemoglobin 8.4 g/dL (12.2-16.2); Lymphocytes # 0.5 K/mm3 (0.7-4.5); Lymphocytes % 3.5 % (10-50); Mean Corpuscular HGB Conc 29.6 g/dL (31.8-35.4); Mean Corpuscular Hemoglobin 32.5 pg (27.0-31.2); Mean Corpuscular Volume 109.5 fl (81-99); Mean Platelet Volume 8.2 fl (7.4-10.4); Monocytes # 0.6 K/mm3 (0.1-1.0); Monocytes % 4.6 % (1.7-9.3); Neutrophils # 12.1 K/mm3 (1.8-7.8); Neutrophils % 91.3 % (37.0-80.0); Platelet Count 89 K/mm3 (142-424); Red Blood Count 2.58 M/mm3 (4.20-5.40); Red Cell Distribution Width 15.4 % (11.5-17.5); White Blood Count 13.2 K/mm3 (4.8-10.8)
[2018-08-31 14:13] LABS: Albumin Level 2.1 gm/dL (3.4-5.0); Albumin/Globulin Ratio 0.6 (1.1-1.8); Anion Gap 16.9 mEq/L (5-15); Bilirubin,Total 0.7 mg/dL (0.2-1.0); Calcium 7.9 mg/dL (8.5-10.1); Globulin 3.6 gm/dl (1.3-3.2); Total Protein,Serum 5.7 gm/dL (6.4-8.2)
[2018-08-31 14:14] LABS: Potassium 6.9 mmoL/L (3.5-5.1)
[2018-08-31 14:23] LABS: Lymphocytes % 3 % (10-50); Macrocytosis 2+; Monocytes % 3 % (2-9); Neutrophils % 94 % (42-76); Total Cells Counted 100
[2018-08-31 14:24] LABS: Tear Drop Cells 1+
--- NOTE | 2018-08-31 14:38 | Emergency Department Note ---
ED Disposition Clinical Impression: Hyperkalemia, Dehydration, Healthcare-associated pneumonia, Non-alcoholic cirrhosis, Anasarca Chronic renal failure Qualifiers: Chronic kidney disease stage: unspecified stage Qualified Code(s): N18.9 - Chronic kidney disease, unspecified Acute renal failure Qualifiers: Acute renal failure type: unspecified Qualified Code(s): N17.9 - Acute kidney failure, unspecified Disposition: Still a Patient Condition on Discharge: Serious - Critical Care Critical Care Time: Yes Attestation: On 08/31/18, the high probability of a clinically significant, sudden or life threatening deterioration of the following system(s) required my full and direct attention, intervention and personal management. The time I documented below is in addition to time spent performing reported procedures but includes the following listed in this critical care notation. Vital system(s) involved:: Circulatory Failure, Renal Failure My critical care processes included: Assessment & monitoring of V/S, Initial and Re-exams, Data Review/Interpretation, Coordinating Care, Medication Orders and management, Documentation Medical Decision Making - [place] Inquiry Pt receiving controlled substance: No Vital Signs: 08/31/18 13:45 08/31/18 13:46 08/31/18 13:55 Temperature Temperature Source Pulse Rate Pulse Rate [Left Radial] 48 L 50 L 48 L Respiratory Rate 18 20 16 Blood Pressure [Right Arm] 92/44 L 91/34 L 81/35 L Blood Pressure Mean [Right Arm] 60 53 50 Blood Pressure Source [Right Arm] Automatic Cuff Automatic Cuff Automatic Cuff Blood Pressure Position [Right Arm] Supine Sitting Sitting 02 Sat by Pulse Oximetry 100 82 L 98 Oxygen Delivery Method Nasal Cannula Room Air Nasal Cannula Oxygen Flow Rate (LPM) 2 2 08/31/18 14:48 08/31/18 15:11 08/31/18 15:18 Temperature Temperature Source Pulse Rate 55 L Pulse Rate [Left Radial] 47 L 88 Respiratory Rate 20 16 Blood Pressure [Right Arm] 85/39 L 92/36 L Blood Pressure Mean [Right Arm] 54 54 Blood Pressure Source [Right Arm] Automatic Cuff Automatic Cuff Blood Pressure Position [Right Arm] Sitting Sitting 02 Sat by Pulse Oximetry 99 99 Oxygen Delivery Method Room Air Nasal Cannula Nasal Cannula Oxygen Flow Rate (LPM) 2 2 08/31/18 15:30 08/31/18 15:55 08/31/18 16:06 Temperature 94.3 F L Temperature Source Rectal Pulse Rate Pulse Rate [Left Radial] 60 62 63 Respiratory Rate 16 16 16 Blood Pressure [Right Arm] 83/46 L 99/42 L 83/58 L Blood Pressure Mean [Right Arm] 58 61 66 Blood Pressure Source [Right Arm] Automatic Cuff Automatic Cuff Automatic Cuff Blood Pressure Position [Right Arm] Sitting Sitting Sitting 02 Sat by Pulse Oximetry 97 97 96 Oxygen Delivery Method Nasal Cannula Nasal Cannula Nasal Cannula Oxygen Flow Rate (LPM) 2 2 2 08/31/18 16:30 Temperature Temperature Source Pulse Rate Pulse Rate [Left Radial] 61 Respiratory Rate 16 Blood Pressure [Right Arm] 80/53 L Blood Pressure Mean [Right Arm] 62 Blood Pressure Source [Right Arm] Automatic Cuff Blood Pressure Position [Right Arm] Sitting 02 Sat by Pulse Oximetry 97 Oxygen Delivery Method Nasal Cannula Oxygen Flow Rate (LPM) 2 - Lab Data Lab Results 08/31/18 13:46: WBC 13.2 H D, RBC 2.58 L, Hgb 8.4 L, Hct 28.3 L, MCV 109.5 H, MCH 32.5 H, MCHC 29.6 L, RDW 15.4, Plt Count 89 L, MPV 8.2, Neut % (Auto) 91.3 H , Lymph % (Auto) 3.5 L, Mcintosh % (Auto) 4.6, Eos % (Auto) 0.5, Baso % (Auto) 0.1, Neut # (Auto) 12.1 H, Lymph # (Auto) 0.5 L, Mcintosh # (Auto) 0.6, Eos # (Auto) 0.1, Baso # (Auto) 0.0, Total Counted 100, Neutrophils % (Manual) 94 H, Lymphocytes % (Manual) 3 L, Monocytes % (Manual) 3, Platelet Estimate Moderate decrease, Macrocytosis 2+, Tear Drop Cells 1+ 08/31/18 13:46: Sodium 133 L, Potassium 6.9 H*, Chloride 102, Carbon Dioxide 21, Anion Gap 16.9 H, BUN 86 H, Creatinine 5.68 H D, Estimated Creat Clear 9, Estimated GFR 7 L*, Est GFR ( Amer) 9 L* D, Glucose 71 L, Calcium 7.9 L, Total Bilirubin 0.7, AST 16, ALT 23, Alkaline Phosphatase 154 H, Total Protein 5.7 L, Albumin 2.1 L, Globulin 3.6 H, Albumin/Globulin Ratio 0.6 L 08/31/18 13:46: Lactate 1.4 08/31/18 13:46: TSH 6.48 H, Free T4 Index 0.9 L, Thyroxine (T4) 2.1 L, T3 Uptake 41 H 08/31/18 13:46: B-Natriuretic Peptide 322 H 08/31/18 13:46: Troponin I < 0.02 Result diagrams: 08/31/18 13:46 08/31/18 13:46 Orders (Tests/Meds): ED MEDICATIONS Generic Name Dose Route Start Last Admin Trade Name Denzel PRN Reason Stop Dose Admin Levofloxacin/Dextrose 250 mg in 50 mls @ 100 mls/hr 08/31/18 15:30 Levaquin 250mg/50ml Premix IV 09/14/18 15:29 Q48H ASHIA Protocol Sodium Chloride 1,000 mls @ 999 mls/hr 08/31/18 15:45 08/31/18 15:53 Sod Chlor 0.9% 1000ml Bag IV 08/31/18 16:53 999 mls/hr .Q1H1M ASHIA Administration Tobramycin Sulfate 200 mg/ 105 mls @ 105 mls/hr 08/31/18 17:00 Sodium Chloride IV 09/14/18 16:59 Q72H ASHIA Azithromycin 500 mg/ Sodium 250 mls @ 250 mls/hr 09/01/18 13:00 Chloride IV 09/15/18 12:59 1300 ASHIA Protocol Discontinued Medications Generic Name Dose Route Start Last Admin Trade Name Denzel PRN Reason Stop Dose Admin Albuterol Sulfate 2.5 mg 08/31/18 14:45 08/31/18 15:18 Albuterol 0.083% 2.5mg/3ml Neb IH 08/31/18 14:46 2.5 mg ONCE ONE Administration Dextrose 50 ml 08/31/18 14:45 08/31/18 15:10 Dextrose 50% 50ml Syringe IVP 08/31/18 14:46 50 ml ONCE ONE Administration Calcium Gluconate 1,000 mg/ 35 mls @ 100 mls/hr 08/31/18 14:47 08/31/18 15:10 Sodium Chloride IV 08/31/18 15:07 100 mls/hr ONCE ONE Administration Azithromycin 500 mg/ Sodium 250 mls @ 250 mls/hr 08/31/18 15:30 08/31/18 15:52 Chloride IV 09/14/18 15:29 250 mls/hr Q24H ASHIA Administration Protocol Insulin Human Regular 10 unit 08/31/18 14:45 08/31/18 15:10 Humulin R Insulin 100 Units/Ml 10ml Vial IVP 08/31/18 14:46 10 unit ONCE ONE Administration Miscellaneous 1 each 08/31/18 15:30 Tobramycin Consult Request * 09/30/18 15:29 CONSULT PHARMACY [facility] Sodium Bicarbonate 50 meq 08/31/18 14:47 08/31/18 15:10 Sodium Bicarbonate 8.4% 50ml Syringe IV 08/31/18 14:48 50 meq ONCE ONE Administration Sodium Chloride 1,000 ml 08/31/18 14:48 08/31/18 14:50 Sod Chlor 0.9% 1000ml Bag IV 08/31/18 14:49 1,000 ml BOLUS ONE Administration ORDERS Category Date Time Status Blood Culture Stat Micro 08/31/18 13:46 Received - Radiology Data #1 Image(s): Chest Image Reviewed: Yes I have reviewed radiologist's interpretation IMPRESSION: 1. Right lower lobe pneumonia with moderate sized effusion 2. There is a suggestion of an air-fluid level in the right midlung which could be seen with empyema or abscess. Dictated By: Blaine Sainz MD Signed By: <Electronically signed by Blaine Sainz MD in OV> 08/31/18 1432 - ECG Data Tracing #1 EKG interpreted by Dereje Tolliver MD: Rhythm: Marked bradycardia, probably sinus Rate: 49 [place]: Right Ectopy: none Conduction: normal ST Segment Changes: none T Wave Changes: none Q Waves: none No evidence of acute ischemia or injury Low voltage QRS Baseline artifact present, but I consider the EKG adequate for accurate interpretation. - Physician Consults Physician Consulted: Wilfred Peterson Time: 15:10 Reason -: Admission Comment/Response: is on diversion. Agrees to admit the patient to the hospital. We discussed the patient's clinical information, including history, exam, laboratory and radiology results and ED course. Per hospital procedure, I will write temporary bridge inpatient orders on the patient. Specific orders requested by the admitting physician: Treat for healthcare associated pneumonia. IV fluids, treatment for hyperkalemia as begun. Hold Spironolactone, diuretics. Medical Decision Narrative: Pharmacy consult for healthcare associated pneumonia. Levaquin 250 mg every other day. Zithromax 500 mg daily. Tobramycin consult. General Adult HPI - General Chief complaint: Weakness Stated complaint: abnormal labs Time Seen by Provider: 08/31/18 14:37 Mode of Arrival: Ambulatory Limitations: No Limitations Description of Symptoms (Recalled from ER Triage Doc. by RN): to ed per pvt car son reports pt had labs drawn wednesday called and told to come to ed for eval due to elevated K+ pt c/o generalized weakness hx of renal insuff. and liver disease . - History of Present Illness HPI narrative: Sent in for elevated potassium level. 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 She is not on dialysis. She sees Dr. Barnhart for cirrhosis, Dr. Berg for renal failure. She had routine blood drawn 2 days ago and was called today and told her potassium level was 6.6, to go to the emergency room. She has been feeling really weak for several days. She has a paracentesis performed every 2 weeks for ascites, last done about 2 weeks ago. - Related Data Home Medications Medication Instructions Recorded Confirmed Acetaminophen [Tylenol 500mg 400 mg PO DAILY PRN 03/31/18 08/31/18 tablet] Atenolol [Atenolol 50mg Tab] 50 mg PO DAILY 03/31/18 08/31/18 Calcium Carbonate [Calcium] 500 mg PO DAILY 03/31/18 08/31/18 Cholecalciferol (Vitamin D3) 50,000 unit PO DAILY 03/31/18 08/31/18 [Vitamin D3 50,000 unit Cap] Ferrous Sulfate 325 mg PO DAILY 03/31/18 08/31/18 Furosemide [Furosemide 40MG tAB] 40 mg PO DAILY 03/31/18 08/31/18 Levothyroxine Sodium 50 mcg PO DAILY 03/31/18 08/31/18 [Levothyroxine 50mcg (0.05mg) Tab] Rifaximin [Xifaxan] 200 mg PO BID 03/31/18 08/31/18 Spironolactone 100 mg PO DAILY 03/31/18 08/31/18 Allergies Allergy/AdvReac Type Severity Reaction Status Date / Time amoxicillin [AMOXICILLIN] Allergy Unknown Unknown Verified 08/17/18 12:33 allergy reaction Cephalosporins Allergy Unknown Verified 08/17/18 12:33 allergy reaction [facility] History I have reviewed the patient's past medical history: Yes Medical History: Reports:: Hypertension Denies:: Diabetes Mellitus Type 1, Diabetes Mellitus Type 2, Internal Pacemaker, Lung Disease, Seizures Other Surgeries: No: Pacemaker - Social History Alcohol Intake: never - Psychiatric History Expresses thoughts of harming self/others: None Suicide Plan Description: No Plan ROS Obtained: Yes All systems reviewed & no additional complaints - Constitutional Constitutional: Reports fatigue, Denies fever(s), Reports malaise - Cardiovascular Cardiovascular: Denies chest pain - Respiratory Respiratory: Yes dyspnea - Gastrointestinal Gastrointestingal: Denies: abdominal pain, vomiting Physical Exam - General General appearance: alert, in no apparent distress Comment: Frail, chronically ill-appearing - Head Head exam: atraumatic, normocephalic - Eye Eye exam: Present: PERRL, EOMI - ENT ENT exam: Present: mucous membranes dry - Neck Neck exam: Present: normal inspection, trachea midline - Chest Chest inspection: Present: normal inspection, symmetric chest wall rise - Respiratory Respiratory exam: Present: normal lung sounds bilaterally. Absent: respiratory distress - Cardiovascular Cardiovascular exam: Present: normal rhythm, bradycardia, normal heart sounds - Abdominal Exam Abdominal exam: Present: soft. Absent: tenderness, guarding Comment: Mild distention consistent with ascites - Extremities Exam Extremities exam: Present: other (2+ pitting edema of legs and feet) - Neurological Exam Neurological exam: Present: alert, CN II-XII intact. Absent: motor sensory deficit - Psychiatric Psychiatric exam: Present: normal affect, normal mood - Skin Skin exam: Present: warm, dry
[2018-08-31 15:12] LABS: Free Thyroxine Index 0.9 ug/dL (5.93-13.13); T4 (Thyroxine) 2.1 ug/dl (4.7-13.3); Thyroid Stimulating Hormone 6.48 uIU/ml (0.358-3.740)
--- NOTE | 2018-08-31 16:04 | Pharmacy Consult Notes ---
- Pharmacy Consult Date: 08/31/18 Time: 16:03 Referring provider: DR. HARRIS Reason for Consult:: TOBRAMYCIN DOSING Allergies and ADEs:: Allergies Allergy/AdvReac Type Severity Reaction Status Date / Time amoxicillin [AMOXICILLIN] Allergy Unknown Unknown Verified 08/17/18 12:33 allergy reaction Cephalosporins Allergy Unknown Verified 08/17/18 12:33 allergy reaction Home Medications:: Home Medications Medication Instructions Recorded Confirmed Type Acetaminophen [Tylenol 500mg 400 mg PO DAILY PRN 03/31/18 08/31/18 History tablet] Atenolol [Atenolol 50mg Tab] 50 mg PO DAILY 03/31/18 08/31/18 History Calcium Carbonate [Calcium] 500 mg PO DAILY 03/31/18 08/31/18 History Cholecalciferol (Vitamin D3) 50,000 unit PO DAILY 03/31/18 08/31/18 History [Vitamin D3 50,000 unit Cap] Ferrous Sulfate 325 mg PO DAILY 03/31/18 08/31/18 History Furosemide [Furosemide 40MG tAB] 40 mg PO DAILY 03/31/18 08/31/18 History Levothyroxine Sodium 50 mcg PO DAILY 03/31/18 08/31/18 History [Levothyroxine 50mcg (0.05mg) Tab] Rifaximin [Xifaxan] 200 mg PO BID 03/31/18 08/31/18 History Spironolactone 100 mg PO DAILY 03/31/18 08/31/18 History Height: 1.63 m Weight: 71.214 kg Laboratory Results:: Laboratory Results - last 24 hr 08/31/18 13:46: WBC 13.2 H D, RBC 2.58 L, Hgb 8.4 L, Hct 28.3 L, MCV 109.5 H, MCH 32.5 H, MCHC 29.6 L, RDW 15.4, Plt Count 89 L, MPV 8.2, Neut % (Auto) 91.3 H , Lymph % (Auto) 3.5 L, [place] % (Auto) 4.6, Eos % (Auto) 0.5, Baso % (Auto) 0.1, Neut # (Auto) 12.1 H, Lymph # (Auto) 0.5 L, [place] # (Auto) 0.6, Eos # (Auto) 0.1, Baso # (Auto) 0.0, Total Counted 100, Neutrophils % (Manual) 94 H, Lymphocytes % (Manual) 3 L, Monocytes % (Manual) 3, Platelet Estimate Moderate decrease, Macrocytosis 2+, Tear Drop Cells 1+ 08/31/18 13:46: Sodium 133 L, Potassium 6.9 H*, Chloride 102, Carbon Dioxide 21, Anion Gap 16.9 H, BUN 86 H, Creatinine 5.68 H D, Estimated Creat Clear 9, Estimated GFR 7 L*, Est GFR ( Amer) 9 L* D, Glucose 71 L, Calcium 7.9 L, Total Bilirubin 0.7, AST 16, ALT 23, Alkaline Phosphatase 154 H, Total Protein 5.7 L, Albumin 2.1 L, Globulin 3.6 H, Albumin/Globulin Ratio 0.6 L 08/31/18 13:46: Lactate 1.4 08/31/18 13:46: TSH 6.48 H, Free T4 Index 0.9 L, Thyroxine (T4) 2.1 L, T3 Uptake 41 H 08/31/18 13:46: B-Natriuretic Peptide 322 H 08/31/18 13:46: Troponin I < 0.02 Medical History: Reports:: Hypertension Denies:: Diabetes Mellitus Type 1, Diabetes Mellitus Type 2, Internal Pacemaker, Lung Disease, Seizures Assessment and Plan - Assessment and plan all Dx Assessment and Plan for all problems:: RECOMMEND STARTING WITH TOBRAMYCIN 200 MG Q72H AT THIS TIME. PHARMACY WILL FOLLOW DAILY AND ADJUST APPROPRIATE. CHIKI MARSHALL, PHARMD
--- NOTE | 2018-08-31 16:38 | History & Physical Report ---
*Admission Date: 08/31/18 <PennyShabnam - 08/31/18 16:44> *Chief complaint: elevated potassium <Shabnam Francis - 08/31/18 16:44> *History of present illness: Son is with patient and states that they went shopping on 08/27/2018 after which she just felt tired. By she was feeling very weak and was not eating and drinking well. Patient denies chest pain and shortness of breath. She does have a cough. She states she was barely able to walk around. She does deny nausea although she has vomited a couple of times. Last bowel movement was this morning and was loose. She continues to void. While in the emergency room temperature was found to be 94 and she was placed on a warming blanket. Blood pressure did drop into the low 80s systolically and she was started on a Levophed drip after receiving 2 L of IV fluids. <Maile Sibley - 08/31/18 17:16> Ms. 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 She is not on dialysis. She sees Dr. Barnhart for cirrhosis and Dr. Berg for renal failure. She had routine blood drawn 2 days ago and was called today and told her potassium level was 6.6 and to go to the emergency room. She has been feeling really weak for several days. She has a paracentesis performed every 2 weeks for ascites, last done about 2 weeks ago. Upon evaluation in the ER she was found to have a RLL pneumonia as well. She will be admitted for further evaluation and treatment. <hSabnam Francis - 08/31/18 16:52> [facility] History Medical History: Reports:: Hypertension, Renal Insufficiency Denies:: Diabetes Mellitus Type 1, Diabetes Mellitus Type 2, Internal Pacemaker, Lung Disease, Seizures <Shabnam Francis 08/31/18 16:44> Other Medical History: Reports: Arthritis, Hypothyroidism, Liver Disease (Cirrhosis), Other (Pancytopenia) <Shabnam rFancis 08/31/18 16:44> Laterality Cases: Bilateral: Tonsillectomy <Shabnam Francis 08/31/18 16:44> Other Surgeries: Yes: Dilation and Curettage, EGD. No: Pacemaker <Shabnam Francis - 08/31/18 16:44> - *Social History Smoking Status: Never smoker <Shabnam Francis 08/31/18 16:44> Alcohol Intake: never <Shabnam Francis 08/31/18 16:44> - Psychiatric History Expresses thoughts of harming self/others: None <Shabnam Francis 08/31/18 1 6:44> Suicide Plan Description: No Plan <Shabnam Francis 08/31/18 16:44> *Family Hx:: Coronary Artery Disease, Diabetes, Kidney Disease <Shabnam Francis 08/31/18 16:44> Review of Systems - Constitutional Reports fatigue, Reports lack of energy, Denies body ache(s), Denies fever(s) [facility] 08/31/18 17:16> - ENT Denies ear pain, Denies sore throat <[facility] 08/31/18 17:16> - *Cardiovascular Denies chest pain, Denies shortness of breath <[facility] 08/31/18 17:16> - *Respiratory Reports cough, Denies shortness of breath, Denies coughing up blood <[facility] 08/31/18 17:16> - *Gastrointestinal Reports vomiting, Denies abdominal pain, Denies nausea <[facility] 08/31/18 17:16> - *Genitourinary Denies difficulty urinating <[facility] 08/31/18 17:16> - *Musculoskeletal Reports muscle weakness <[facility]/18 17:16> Comments: Walks with a cane <[facility] 08/31/18 17:16> - *Neurologic Reports weakness, Denies confusion, Denies dizziness <[facility] 08/31/18 17:16> Meds Home Medications Medication Instructions Recorded Confirmed Type Acetaminophen [Tylenol 500mg 400 mg PO DAILY PRN 03/31/18 08/31/18 History tablet] Atenolol [Atenolol 50mg Tab] 50 mg PO DAILY 03/31/18 08/31/18 History Calcium Carbonate [Calcium] 500 mg PO DAILY 03/31/18 08/31/18 History Cholecalciferol (Vitamin D3) 50,000 unit PO DAILY 03/31/18 08/31/18 History [Vitamin D3 50,000 unit Cap] Ferrous Sulfate 325 mg PO BID 03/31/18 08/31/18 History Furosemide [Furosemide 40MG tAB] 40 mg PO DAILY 03/31/18 08/31/18 History Levothyroxine Sodium 50 mcg PO DAILY 03/31/18 08/31/18 History [Levothyroxine 50mcg (0.05mg) Tab] Spironolactone 100 mg PO DAILY 03/31/18 08/31/18 History Rifaximin [Xifaxan] 550 mg PO DAILY 08/31/18 08/31/18 History <Maile Sibely - 08/31/18 17:16> Allergies Allergy/AdvReac Type Severity Reaction Status Date / Time amoxicillin [AMOXICILLIN] Allergy Unknown Unknown Verified 08/17/18 12:33 allergy reaction Cephalosporins Allergy Unknown Verified 08/17/18 12:33 allergy reaction <Maile Sibley - 08/31/18 17:16> Exam Vital signs and Labs for Last 24 Hours: Temp Pulse Resp BP Pulse Ox 94.3 F L 61 16 82/46 L 97 08/31/18 15:30 08/31/18 16:30 08/31/18 16:30 08/31/18 16:43 08/31/18 16:30 Laboratory Results - last 24 hr 08/31/18 13:46: WBC 13.2 H D, RBC 2.58 L, Hgb 8.4 L, Hct 28.3 L, MCV 109.5 H, MCH 32.5 H, MCHC 29.6 L, RDW 15.4, Plt Count 89 L, MPV 8.2, Neut % (Auto) 91.3 H , Lymph % (Auto) 3.5 L, [place] % (Auto) 4.6, Eos % (Auto) 0.5, Baso % (Auto) 0.1, Neut # (Auto) 12.1 H, Lymph # (Auto) 0.5 L, [place] # (Auto) 0.6, Eos # (Auto) 0.1, Baso # (Auto) 0.0, Total Counted 100, Neutrophils % (Manual) 94 H, Lymphocytes % (Manual) 3 L, Monocytes % (Manual) 3, Platelet Estimate Moderate decrease, Macrocytosis 2+, Tear Drop Cells 1+ 08/31/18 13:46: Sodium 133 L, Potassium 6.9 H*, Chloride 102, Carbon Dioxide 21, Anion Gap 16.9 H, BUN 86 H, Creatinine 5.68 H D, Estimated Creat Clear 9, Estimated GFR 7 L*, Est GFR ( Amer) 9 L* D, Glucose 71 L, Calcium 7.9 L, Total Bilirubin 0.7, AST 16, ALT 23, Alkaline Phosphatase 154 H, Total Protein 5.7 L, Albumin 2.1 L, Globulin 3.6 H, Albumin/Globulin Ratio 0.6 L 08/31/18 13:46: Lactate 1.4 08/31/18 13:46: TSH 6.48 H, Free T4 Index 0.9 L, Thyroxine (T4) 2.1 L, T3 Uptake 41 H 08/31/18 13:46: B-Natriuretic Peptide 322 H 08/31/18 13:46: Troponin I < 0.02 <Maile Sibley - 08/31/18 17:16> Temp Pulse Resp BP Pulse Ox 94.3 F L 61 16 80/53 L 97 08/31/18 15:30 08/31/18 16:30 08/31/18 16:30 08/31/18 16:30 08/31/18 16:30 Laboratory Results - last 24 hr 08/31/18 13:46: WBC 13.2 H D, RBC 2.58 L, Hgb 8.4 L, Hct 28.3 L, MCV 109.5 H, MCH 32.5 H, MCHC 29.6 L, RDW 15.4, Plt Count 89 L, MPV 8.2, Neut % (Auto) 91.3 H , Lymph % (Auto) 3.5 L, [place] % (Auto) 4.6, Eos % (Auto) 0.5, Baso % (Auto) 0.1, Neut # (Auto) 12.1 H, Lymph # (Auto) 0.5 L, [place] # (Auto) 0.6, Eos # (Auto) 0.1, Baso # (Auto) 0.0, Total Counted 100, Neutrophils % (Manual) 94 H, Lymphocytes % (Manual) 3 L, Monocytes % (Manual) 3, Platelet Estimate Moderate decrease, Macrocytosis 2+, Tear Drop Cells 1+ 08/31/18 13:46: Sodium 133 L, Potassium 6.9 H*, Chloride 102, Carbon Dioxide 21, Anion Gap 16.9 H, BUN 86 H, Creatinine 5.68 H D, Estimated Creat Clear 9, Estimated GFR 7 L*, Est GFR ( Amer) 9 L* D, Glucose 71 L, Calcium 7.9 L, Total Bilirubin 0.7, AST 16, ALT 23, Alkaline Phosphatase 154 H, Total Protein 5.7 L, Albumin 2.1 L, Globulin 3.6 H, Albumin/Globulin Ratio 0.6 L 08/31/18 13:46: Lactate 1.4 08/31/18 13:46: TSH 6.48 H, Free T4 Index 0.9 L, Thyroxine (T4) 2.1 L, T3 Uptake 41 H 08/31/18 13:46: B-Natriuretic Peptide 322 H 08/31/18 13:46: Troponin I < 0.02 <Shabnam Fracnis - 08/31/18 16:44> I & O for Last 24 hours: Intake & Output 08/29/18 08/30/18 08/31/18 09/01/18 11:59 11:59 11:59 11:59 Weight 157 lb <Maile Sibley - 08/31/18 17:16> Intake & Output 08/29/18 08/30/18 08/31/18 09/01/18 11:59 11:59 11:59 11:59 Weight 157 lb <Shabnam Francis - 08/31/18 16:44> Radiology Reports for the Last 24 Hours: 08/31/2018 chest x-ray IMPRESSION: 1. Right lower lobe pneumonia with moderate sized effusion 2. There is a suggestion of an air-fluid level in the right midlung which could be seen with empyema or abscess. <Maile Sibley - 08/31/18 17:16> - Constitutional moderate distress, thin <Maile Sibley - 08/31/18 17:16> Comments: Appears not to feel well. Lying on stretcher with her eyes closed. Assist with exam. Does respond and open her eyes and speaks softly and coherently. <Maile Sibley - 08/31/18 17:16> - *Routine HEENT Exam Head: Present: normocephalic, atraumatic <ToñitoMaile - 08/31/18 17:16> Eye: Present: PERRL. Absent: conjunctival icterus [facility]> ENT: Present: mucous membranes moist (Tongue is moist), oropharynx clear, TM's clear bilaterally <[facility] 08/31/18 17:16> - *Routine Neck Exam Absent: carotid bruit, lymphadenopathy, thyromegaly <[facility] 08/31/18 17:16> - *Routine Respiratory Exam Present: CTA bilaterally (Anteriorly) <[facility] 08/31/18 17:16> - *Routine Cardiovascular Exam Present: RRR <[facility] 08/31/18 17:16> Comments: Monitor showing sinus rhythm in the 60s and 70s <[facility] 08/31/18 17:16> - *Routine Abdominal Exam Present: soft. Absent: tenderness <[facility] 08/31/18 17:16> Comments: Ascites <[facility] 08/31/18 17:16> - *Routine Extremities Exam Present: edema <[facility] 08/31/18 17:16> Comments: Bilateral leg edema <[facility] 08/31/18 17:16> - *Routine Skin Exam Present: dry (Warm; patient is on warming blanket.) <[facility] 08/31/18 17:16> - *Routine Neurological Exam Present: alert <[facility] 08/31/18 17:16> H&P: Result - Impressions CXR - 1. Right lower lobe pneumonia with moderate sized effusion 2. There is a suggestion of an air-fluid level in the right midlung which could be seen with empyema or abscess. <Shabnam Francis 08/31/18 16:44> Assessment and Plan (1) Healthcare-associated pneumonia Current visit: Yes Status: Acute Category: Medical Code(s): J18.9 - Pneumonia, unspecified organism (2) Hyperkalemia Current visit: Yes Status: Acute Category: Medical Code(s): E87.5 - Hyperkalemia (3) Dehydration Current visit: Yes Status: Acute Category: Medical Code(s): E86.0 - Dehydration (4) Acute renal failure Current visit: Yes Status: Acute Qualifiers: Acute renal failure type: unspecified Qualified Code(s): N17.9 - Acute kidney failure, unspecified Category: Medical Code(s): N17.9 - Acute kidney failure, unspecified (5) Anasarca Current visit: Yes Status: Acute Category: Medical Code(s): R60.1 - Generalized edema (6) Chronic renal failure Current visit: Yes Status: Chronic Qualifiers: Chronic kidney disease stage: unspecified stage Qualified Code(s): N18.9 - Chronic kidney disease, unspecified Category: Medical Code(s): N18.9 - Chronic kidney disease, unspecified (7) Non-alcoholic cirrhosis Current visit: Yes Status: Chronic Category: Medical Code(s): K74.60 - Unspecified cirrhosis of liver (8) Hypertension Current visit: Yes Status: Chronic Category: Medical Code(s): I10 - Essential (primary) hypertension (9) Hypothyroid Current visit: Yes Status: Chronic Category: Medical Code(s): E03.9 - Hypothyroidism, unspecified <Shabnam Francis - 08/31/18 16:51> (1) Healthcare-associated pneumonia Current visit: Yes Status: Acute Category: Medical Code(s): J18.9 - Pneumonia, unspecified organism (2) Hyperkalemia Current visit: Yes Status: Acute Category: Medical Code(s): E87.5 - Hyperkalemia (3) Dehydration Current visit: Yes Status: Acute Category: Medical Code(s): E86.0 - Dehydration (4) Acute renal failure Current visit: Yes Status: Acute Qualifiers: Acute renal failure type: unspecified Qualified Code(s): N17.9 - Acute kidney failure, unspecified Category: Medical Code(s): N17.9 - Acute kidney failure, unspecified (5) Anasarca Current visit: Yes Status: Acute Category: Medical Code(s): R60.1 - Generalized edema (6) Chronic renal failure Current visit: Yes Status: Chronic Qualifiers: Chronic kidney disease stage: unspecified stage Qualified Code(s): N18.9 - Chronic kidney disease, unspecified Category: Medical Code(s): N18.9 - Chronic kidney disease, unspecified (7) Non-alcoholic cirrhosis Current visit: Yes Status: Chronic Category: Medical Code(s): K74.60 - Unspecified cirrhosis of liver (8) Hypertension Current visit: Yes Status: Chronic Category: Medical Code(s): I10 - Essential (primary) hypertension (9) Hypothyroid Current visit: Yes Status: Chronic Category: Medical Code(s): E03.9 - Hypothyroidism, unspecified (10) Hypotension Current visit: Yes Status: Acute Category: Medical Code(s): I95.9 - Hypotension, unspecified <Maile Sibley - 08/31/18 17:16> - Assessment and plan all Dx Assessment and Plan for all problems:: Has been placed on a Levophed drip for hypotension. Has been started on 3 antibiotics Zithromax, Levaquin, and tobramycin. Will start scheduled duo nebs. Will monitor labs. Patient's son has been informed of her critical condition. <Maile Sibley - 08/31/18 17:16>
[2018-08-31 17:49] LABS: Microscopic, Urine URINE MICROSCOPIC (MICROSCOPIC)
[2018-08-31 18:09] LABS: Appearance,Urine CLEAR (Clear); Bilirubin,Urine Negative (Negative); Blood, Urine Negative (Negative); Color,Urine YELLOW (Yellow); Glucose,Urine (UA) Negative (Negative); Ketones,Urine Negative (Negative); Leukocyte Esterase,Urine TRACE (Negative); Protein,Urine 1+ (Negative); Specific Gravity, Urine >= 1.030 (1.005-1.030); Urobilinogen,Urine 0.2 EU/dl (0.2)
[2018-08-31 18:57] LABS: Yeast,Urine 2+ /lpf
[2018-08-31 18:58] LABS: Bacteria,Urine 1+ /lpf; RBC,Urine Occasional #/hpf (0-3)
[2018-08-31 19:59] LABS: Anion Gap 16.1 mEq/L (5-15); Calcium 7.2 mg/dL (8.5-10.1)
[2018-08-31 20:02] LABS: Potassium 6.1 mmoL/L (3.5-5.1)
--- NOTE | 2018-08-31 20:27 | Progress Note ---
Internal Medicine - PN: Subj *Date: 08/31/18 *Time: 20:23 Interval history: The patient continues to do poorly. Her breathing became shallow and almost agonal. She required an episode of Ambu bagging. The blood pressure remains low, below 90. Dr. Hardin spoke with the patient's son who is her power of workers compensation defense attorney. The son seems to understand the gravity the situation. He feels that the patient's desires and the family's desires would be that the patient not be this a full code. He accordingly signed the release to avoid CPR chest compressions intubation and DC cardioversion. Exam Vital signs and Labs for Last 24 Hours: Temp Pulse Resp BP Pulse Ox 93.9 F L 59 L 17 88/43 L 96 08/31/18 19:00 08/31/18 19:00 08/31/18 19:00 08/31/18 19:00 08/31/18 19:00 Laboratory Results - last 24 hr 08/31/18 13:46: WBC 13.2 H D, RBC 2.58 L, Hgb 8.4 L, Hct 28.3 L, MCV 109.5 H, MCH 32.5 H, MCHC 29.6 L, RDW 15.4, Plt Count 89 L, MPV 8.2, Neut % (Auto) 91.3 H , Lymph % (Auto) 3.5 L, [place] % (Auto) 4.6, Eos % (Auto) 0.5, Baso % (Auto) 0.1, Neut # (Auto) 12.1 H, Lymph # (Auto) 0.5 L, [place] # (Auto) 0.6, Eos # (Auto) 0.1, Baso # (Auto) 0.0, Total Counted 100, Neutrophils % (Manual) 94 H, Lymphocytes % (Manual) 3 L, Monocytes % (Manual) 3, Platelet Estimate Moderate decrease, Macrocytosis 2+, Tear Drop Cells 1+ 08/31/18 13:46: Sodium 133 L, Potassium 6.9 H*, Chloride 102, Carbon Dioxide 21, Anion Gap 16.9 H, BUN 86 H, Creatinine 5.68 H D, Estimated Creat Clear 9, Estimated GFR 7 L*, Est GFR ( Amer) 9 L* D, Glucose 71 L, Calcium 7.9 L, Total Bilirubin 0.7, AST 16, ALT 23, Alkaline Phosphatase 154 H, Total Protein 5.7 L, Albumin 2.1 L, Globulin 3.6 H, Albumin/Globulin Ratio 0.6 L 08/31/18 13:46: Lactate 1.4 08/31/18 13:46: TSH 6.48 H, Free T4 Index 0.9 L, Thyroxine (T4) 2.1 L, T3 Uptake 41 H 08/31/18 13:46: B-Natriuretic Peptide 322 H 08/31/18 13:46: Troponin I < 0.02 08/31/18 17:20: Urine Color Yellow, Urine Appearance Clear, Urine pH 5.0, Ur Specific [place] >= 1.030, Urine Protein 1+, Urine Glucose (UA) Negative, Urine Ketones Negative, Urine Blood Negative, Urine Nitrate Negative, Urine Bilirubin Negative, Urine Urobilinogen 0.2, Ur Leukocyte Esterase Trace, Urine RBC Occasional, Urine WBC 3-5, Ur Squamous Epith Cells None, Urine Bacteria 1+, Urine Yeast 2+ 08/31/18 19:45: Sodium 136, Potassium 6.1 H*, Chloride 106, Carbon Dioxide 20 L, Anion Gap 16.1 H, BUN 82 H, Creatinine 5.17 H, Estimated Creat Clear 11, Estimat ed GFR 8 L*, Est GFR ( Amer) 10 L*, Glucose 65 L, Calcium 7.2 L I & O for Last 24 hours: Intake & Output 08/29/18 08/30/18 08/31/18 09/01/18 11:59 11:59 11:59 11:59 Weight 171 lb 8 oz - Constitutional Comments: She responds to pain and to movement but does not seem cogent. - *Routine HEENT Exam Eye: Present: PERRL - *Routine Neck Exam Comments: Some JVD. - *Routine Respiratory Exam Comments: Shallow respirations. Decreased breath sounds on the right. - *Routine Cardiovascular Exam Present: bradycardia - *Routine Abdominal Exam Present: distended. Absent: tenderness - *Routine Extremities Exam Comments: 3+ edema. Assessment and Plan (1) Healthcare-associated pneumonia Current visit: Yes Status: Acute Category: Medical Code(s): J18.9 - Pneumonia, unspecified organism (2) Hyperkalemia Current visit: Yes Status: Acute Category: Medical Code(s): E87.5 - Hyperkalemia (3) Dehydration Current visit: Yes Status: Acute Category: Medical Code(s): E86.0 - Dehydration (4) Acute renal failure Current visit: Yes Status: Acute Qualifiers: Acute renal failure type: unspecified Qualified Code(s): N17.9 - Acute kidney failure, unspecified Category: Medical Code(s): N17.9 - Acute kidney failure, unspecified (5) Anasarca Current visit: Yes Status: Acute Category: Medical Code(s): R60.1 - Genera lized edema (6) Chronic renal failure Current visit: Yes Status: Chronic Qualifiers: Chronic kidney disease stage: unspecified stage Qualified Code(s): N18.9 - Chronic kidney disease, unspecified Category: Medical Code(s): N18.9 - Chronic kidney disease, unspecified (7) Non-alcoholic cirrhosis Current visit: Yes Status: Chronic Category: Medical Code(s): K74.60 - Unspecified cirrhosis of liver (8) Hypertension Current visit: Yes Status: Chronic Category: Medical Code(s): I10 - Essential (primary) hypertension (9) Hypothyroid Current visit: Yes Status: Chronic Category: Medical Code(s): E03.9 - Hypothyroidism, unspecified - Assessment and plan all Dx Assessment and Plan for all problems:: We will continue to support blood pressure. We will continue to supplement with oxygen. We will honor the family's wishes as far as resuscitative parameters.
[2018-09-01 06:23] LABS: Albumin Level 1.8 gm/dL (3.4-5.0); Albumin/Globulin Ratio 0.5 (1.1-1.8); Anion Gap 17.2 mEq/L (5-15); Bilirubin,Total 0.6 mg/dL (0.2-1.0); Calcium 7.1 mg/dL (8.5-10.1); Globulin 3.5 gm/dl (1.3-3.2); Total Protein,Serum 5.3 gm/dL (6.4-8.2)
[2018-09-01 06:37] LABS: Potassium 6.2 mmoL/L (3.5-5.1)
--- NOTE | 2018-09-01 07:35 | Pharmacy Consult Notes ---
[facility] Pharmacy VTE Monitoring - Patient Demographics Admission date: 08/31/18 Report Date: 09/01/18 Time: 07:35 Allergies/Adverse Reactions: Patient Allergies amoxicillin [AMOXICILLIN] Allergy (Unknown, Verified 08/31/18 18:29) Unknown allergy reaction Cephalosporins Allergy (Verified 08/31/18 18:29) Unknown allergy reaction Height: 1.63 m Weight: 77.593 kg Patient Problems: Current Active Problems Hyperkalemia (Acute) Dehydration (Acute) Healthcare-associated pneumonia (Acute) Chronic renal failure (Chronic) Non-alcoholic cirrhosis (Chronic) Anasarca (Acute) Acute renal failure (Acute) Hypertension (Chronic) Hypothyroid (Chronic) Hypotension (Acute) - VTE Risk Labs: VTE Related Lab Results Hgb 8.4 g/dL (12.2-16.2) L 08/31/18 13:46 Hct 28.3 % (37.0-47.0) L 08/31/18 13:46 Plt Count 89 K/mm3 (142-424) L 08/31/18 13:46 BUN 80 mg/dL (7-18) H 09/01/18 05:45 Creatinine 5.19 mg/dL (0.55-1.02) H 09/01/18 05:45 Estimated Creat Clear 11 mL/min (50-200) 09/01/18 05:45 VTE Score: 4 VTE Risk Level: Low Risk - Prophylaxis VTE Prophylaxis Ordered?: Yes Types of VTE Prophylaxis: TEDS Knee High Location of Applied Device: Bilateral Lower Extremeties - VTE Diagnosis Confirmed Treatment or plan recommended: Continue Current Treatment
--- NOTE | 2018-09-01 08:33 | Progress Note ---
<Shabnam Francis - Last Filed: 09/01/18 08:30> Internal Medicine - PN: Subj *Date: 09/01/18 *Time: 08:30 Interval history: Patient states she feels only slightly better today. She states she is still short of breath but better if she is sitting up straight. She did try to eat some breakfast this morning. She states her abdomen is hurting but this is normal for her. She is still extremely weak. Exam Vital signs and Labs for Last 24 Hours: Temp Pulse Resp BP Pulse Ox 97.4 F L 83 20 144/70 H 91 L 09/01/18 08:00 09/01/18 08:00 09/01/18 08:00 09/01/18 08:00 09/01/18 08:00 Laboratory Results - last 24 hr 08/31/18 13:46: WBC 13.2 H D, RBC 2.58 L, Hgb 8.4 L, Hct 28.3 L, MCV 109.5 H, MCH 32.5 H, MCHC 29.6 L, RDW 15.4, Plt Count 89 L, MPV 8.2, Neut % (Auto) 91.3 H , Lymph % (Auto) 3.5 L, [place] % (Auto) 4.6, Eos % (Auto) 0.5, Baso % (Auto) 0.1, Neut # (Auto) 12.1 H, Lymph # (Auto) 0.5 L, [place] # (Auto) 0.6, Eos # (Auto) 0.1, Baso # (Auto) 0.0, Total Counted 100, Neutrophils % (Manual) 94 H, Lymphocytes % (Manual) 3 L, Monocytes % (Manual) 3, Platelet Estimate Moderate decrease, Macrocytosis 2+, Tear Drop Cells 1+ 08/31/18 13:46: Sodium 133 L, Potassium 6.9 H*, Chloride 102, Carbon Dioxide 21, Anion Gap 16.9 H, BUN 86 H, Creatinine 5.68 H D, Estimated Creat Clear 9, Estimated GFR 7 L*, Est GFR ( Amer) 9 L* D, Glucose 71 L, Calcium 7.9 L, Total Bilirubin 0.7, AST 16, ALT 23, Alkaline Phosphatase 154 H, Total Protein 5.7 L, Albumin 2.1 L, Globulin 3.6 H, Albumin/Globulin Ratio 0.6 L 12/05/18 13:46: Lactate 1.4 08/31/18 13:46: TSH 6.48 H, Free T4 Index 0.9 L, Thyroxine (T4) 2.1 L, T3 Uptake 41 H 08/31/18 13:46: B-Natriuretic Peptide 322 H 08/31/18 13:46: Troponin I < 0.02 08/31/18 17:20: Urine Color Yellow, Urine Appearance Clear, Urine pH 5.0, Ur Specific [place] >= 1.030, Urine Protein 1+, Urine Glucose (UA) Negative, Urine Ketones Negative, Urine Blood Negative, Urine Nitrate Negative, Urine Bilirubin Negative, Urine Urobilinogen 0.2, Ur Leukocyte Esterase Trace, Urine RBC Occasional, Urine WBC 3-5, Ur Squamous Epith Cells None, Urine Bacteria 1+, Urine Yeast 2+ 08/31/18 19:45: Sodium 136, Potassium 6.1 H*, Chloride 106, Carbon Dioxide 20 L, Anion Gap 16.1 H, BUN 82 H, Creatinine 5.17 H, Estimated Creat Clear 11, Estimated GFR 8 L*, Est GFR ( Amer) 10 L*, Glucose 65 L, Calcium 7.2 L 08/31/18 19:57: POC Glucose 67 L 08/31/18 20:08: POC Glucose 237 H 08/31/18 21:15: Random Tobramycin 6.5 09/01/18 05:45: Random Tobramycin 4.7 09/01/18 05:45: Sodium 135 L, Potassium 6.2 H*, Chloride 106, Carbon Dioxide 18 L, Anion Gap 17.2 H, BUN 80 H, Creatinine 5.19 H, Estimated Creat Clear 11, Estimated GFR 8 L*, Est GFR ( Amer) 10 L*, Glucose 80 D, Calcium 7.1 L, Total Bilirubin 0.6, AST 13 L, ALT 17 D, Alkaline Phosphatase 145 H, Total Protein 5.3 L, Albumin 1.8 L D, Globulin 3.5 H, Albumin/Globulin Ratio 0.5 L 09/01/18 06:27: POC Glucose 79 I & O for Last 24 hours: Intake & Output 08/29/18 08/30/18 08/31/18 09/01/18 11:59 11:59 11:59 11:59 Intake Total Output Total Balance Weight 171 lb 1 oz - Constitutional Comments: Does not appear to feel well - *Routine Respiratory Exam Present: rhonchi, crackles (right base) - *Routine Cardiovascular Exam Present: RRR - *Routine Abdominal Exam Present: soft, tenderness (in the RUQ), distended - *Routine Extremities Exam Present: edema (bilateral lower extremities) - *Routine Neurological Exam Present: alert, oriented X3 Assessment and Plan (1) Healthcare-associated pneumonia Current visit: Yes Status: Acute Category: Medical Code(s): J18.9 - Pneumonia, unspecified organism (2) Hyperkalemia Current visit: Yes Status: Acute Category: Medical Code(s): E87.5 - Hyperkalemia (3) Dehydration Current visit: Yes Status: Acute Category: Medical Code(s): E86.0 - Dehydration (4) Acute renal failure Current visit: Yes Status: Acute Qualifiers: Acute renal failure type: unspecified Qualified Code(s): N17.9 - Acute kidney failure, unspecified Category: Medical Code(s): N17.9 - Acute kidney failure, unspecified (5) Anasarca Current visit: Yes Status: Acute Category: Medical Code(s): R60.1 - Gene ralized edema (6) Chronic renal failure Current visit: Yes Status: Chronic Qualifiers: Chronic kidney disease stage: unspecified stage Qualified Code(s): N18.9 - Chronic kidney disease, unspecified Category: Medical Code(s): N18.9 - Chronic kidney disease, unspecified (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 It does not appear she was given any Kayexalate. She is currently on 3 antibiotics for her pneumonia. Will discuss further care with Dr. Peterson. <Rolf Peterson - Last Filed: 09/01/18 14:48> Exam Vital signs and Labs for Last 24 Hours: Temp Pulse Resp BP Pulse Ox 97.4 F L 69 16 115/47 L 96 09/01/18 08:00 09/01/18 14:06 09/01/18 12:00 09/01/18 12:00 09/01/18 14:07 Laboratory Results - last 24 hr 08/31/18 13:46: TSH 6.48 H, Free T4 Index 0.9 L, Thyroxine (T4) 2.1 L, T3 Uptake 41 H 08/31/18 13:46: B-Natriuretic Peptide 322 H 08/31/18 13:46: Troponin I < 0.02 08/31/18 17:20: Urine Color Yellow, Urine Appearance Clear, Urine pH 5.0, Ur Specific [place] >= 1.030, Urine Protein 1+, Urine Glucose (UA) Negative, Urine Ketones Negative, Urine Blood Negative, Urine Nitrate Negative, Urine Bilirubin Negative, Urine Urobilinogen 0.2, Ur Leukocyte Esterase Trace, Urine RBC Occasional, Urine WBC 3-5, Ur Squamous Epith Cells None, Urine Bacteria 1+, Urine Yeast 2+ 08/31/18 19:45: Sodium 136, Potassium 6.1 H*, Chloride 106, Carbon Dioxide 20 L, Anion Gap 16.1 H, BUN 82 H, Creatinine 5.17 H, Estimated Creat Clear 11, Estimated GFR 8 L*, Est GFR ( Amer) 10 L*, Glucose 65 L, Calcium 7.2 L 08/31/18 19:57: POC Glucose 67 L 08/31/18 20:08: POC Glucose 237 H 08/31/18 21:15: Random Tobramycin 6.5 09/01/18 05:45: Random Tobramycin 4.7 09/01/18 05:45: Sodium 135 L, Potassium 6.2 H*, Chloride 106, Carbon Dioxide 18 L, Anion Gap 17.2 H, BUN 80 H, Creatinine 5.19 H, Estimated Creat Clear 11, Estimated GFR 8 L*, Est GFR ( Amer) 10 L*, Glucose 80 D, Calcium 7.1 L, Total Bilirubin 0.6, AST 13 L, ALT 17 D, Alkaline Phosphatase 145 H, Total Protein 5.3 L, Albumin 1.8 L D, Globulin 3.5 H, Albumin/Globulin Ratio 0.5 L 09/01/18 06:27: POC Glucose 79 I & O for Last 24 hours: Intake & Output 08/30/18 08/31/18 09/01/18 09/02/18 11:59 11:59 11:59 11:59 Intake Total 2852.087 / 2852.087 9.167 / 9.167 Output Total Balance 2827.087 / 2827.087 9.167 / 9.167 Weight 171 lb 1 oz Assessment and Plan (1) Healthcare-associated pneumonia Current visit: Yes Status: Acute Category: Medical Code(s): J18.9 - Pneumonia, unspecified organism (2) Hyperkalemia Current visit: Yes Status: Acute Category: Medical Code(s): E87.5 - Hyperkalemia (3) Dehydration Current visit: Yes Status: Acute Category: Medical Code(s): E86.0 - Dehydration (4) Acute renal failure Current visit: Yes Status: Acute Qualifiers: Acute renal failure type: unspecified Qualified Code(s): N17.9 - Acute kidney failure, unspecified Category: Medical Code(s): N17.9 - Acute kidney failure, unspecified (5) Anasarca Current visit: Yes Status: Acute Category: Medical Code(s): R60.1 - Generalized edema (6) Chronic renal failure Current visit: Yes Status: Chronic Qualifiers: Chronic kidney disease stage: unspecified stage Qualified Code(s): N18.9 - Chronic kidney disease, unspecified Category: Medical Code(s): N18.9 - Chronic kidney disease, unspecified (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 Son at bedside. SHe is weak but alert and appears in no distress. SHe has been weaned to a nasal cannula. SHe remains on Levophed. Condition remains guarded. Continue current antibiotic regimen. Awaiting nephrology consult today.
--- NOTE | 2018-09-01 11:06 | Pharmacy Consult Notes ---
- Pharmacy Consult Date: 09/01/18 Time: 11:03 Referring provider: DR. HARRIS Reason for Consult:: TOBRAMYCIN LEVELS Allergies and ADEs:: Allergies Allergy/AdvReac Type Severity Reaction Status Date / Time amoxicillin [AMOXICILLIN] Allergy Unknown Unknown Verified 08/31/18 18:29 allergy reaction Cephalosporins Allergy Unknown Verified 08/31/18 18:29 allergy reaction Home Medications:: Home Medications Medication Instructions Recorded Confirmed Type Acetaminophen [Tylenol 500mg 400 mg PO DAILY PRN 03/31/18 08/31/18 History tablet] Atenolol [Atenolol 50mg Tab] 50 mg PO DAILY 03/31/18 08/31/18 History Calcium Carbonate [Calcium] 500 mg PO DAILY 03/31/18 08/31/18 History Cholecalciferol (Vitamin D3) 50,000 unit PO DAILY 03/31/18 08/31/18 History [Vitamin D3 50,000 unit Cap] Ferrous Sulfate 325 mg PO BID 03/31/18 08/31/18 History Furosemide [Furosemide 40MG tAB] 40 mg PO DAILY 03/31/18 08/31/18 History Levothyroxine Sodium 50 mcg PO DAILY 03/31/18 08/31/18 History [Levothyroxine 50mcg (0.05mg) Tab] Spironolactone 100 mg PO DAILY 03/31/18 08/31/18 History Rifaximin [Xifaxan] 550 mg PO DAILY 08/31/18 08/31/18 History Height: 1.63 m Weight: 77.593 kg Laboratory Results:: Laboratory Results - last 24 hr 08/31/18 13:46: WBC 13.2 H D, RBC 2.58 L, Hgb 8.4 L, Hct 28.3 L, MCV 109.5 H, MCH 32.5 H, MCHC 29.6 L, RDW 15.4, Plt Count 89 L, MPV 8.2, Neut % (Auto) 91.3 H , Lymph % (Auto) 3.5 L, [place] % (Auto) 4.6, Eos % (Auto) 0.5, Baso % (Auto) 0.1, Neut # (Auto) 12.1 H, Lymph # (Auto) 0.5 L, [place] # (Auto) 0.6, Eos # (Auto) 0.1, Baso # (Auto) 0.0, Total Counted 100, Neutrophils % (Manual) 94 H, Lymphocytes % (Manual) 3 L, Monocytes % (Manual) 3, Platelet Estimate Moderate decrease, Macrocytosis 2+, Tear Drop Cells 1+ 08/31/18 13:46: Sodium 133 L, Potassium 6.9 H*, Chloride 102, Carbon Dioxide 21, Anion Gap 16.9 H, BUN 86 H, Creatinine 5.68 H D, Estimated Creat Clear 9, Estimated GFR 7 L*, Est GFR ( Amer) 9 L* D, Glucose 71 L, Calcium 7.9 L, Total Bilirubin 0.7, AST 16, ALT 23, Alkaline Phosphatase 154 H, Total Protein 5.7 L, Albumin 2.1 L, Globulin 3.6 H, Albumin/Globulin Ratio 0.6 L 08/31/18 13:46: Lactate 1.4 08/31/18 13:46: TSH 6.48 H, Free T4 Index 0.9 L, Thyroxine (T4) 2.1 L, T3 Uptake 41 H 08/31/18 13:46: B-Natriuretic Peptide 322 H 08/31/18 13:46: Troponin I < 0.02 08/31/18 17:20: Urine Color Yellow, Urine Appearance Clear, Urine pH 5.0, Ur Specific [place] >= 1.030, Urine Protein 1+, Urine Glucose (UA) Negative, Urine Ketones Negative, Urine Blood Negative, Urine Nitrate Negative, Urine Bilirubin Negative, Urine Urobilinogen 0.2, Ur Leukocyte Esterase Trace, Urine RBC Occasional, Urine WBC 3-5, Ur Squamous Epith Cells None, Urine Bacteria 1+, Urine Yeast 2+ 08/31/18 19:45: Sodium 136, Potassium 6.1 H*, Chloride 106, Carbon Dioxide 20 L, Anion Gap 16.1 H, BUN 82 H, Creatinine 5.17 H, Estimated Creat Clear 11, Estimated GFR 8 L*, Est GFR ( Amer) 10 L*, Glucose 65 L, Calcium 7.2 L 08/31/18 19:57: POC Glucose 67 L 08/31/18 20:08: POC Glucose 237 H 08/31/18 21:15: Random Tobramycin 6.5 09/01/18 05:45: Random Tobramycin 4.7 09/01/18 05:45: Sodium 135 L, Potassium 6.2 H*, Chloride 106, Carbon Dioxide 18 L, Anion Gap 17.2 H, BUN 80 H, Creatinine 5.19 H, Estimated Creat Clear 11, Estimated GFR 8 L*, Est GFR ( Amer) 10 L*, Glucose 80 D, Calcium 7.1 L, Total Bilirubin 0.6, AST 13 L, ALT 17 D, Alkaline Phosphatase 145 H, Total Protein 5.3 L, Albumin 1.8 L D, Globulin 3.5 H, Albumin/Globulin Ratio 0.5 L 09/01/18 06:27: POC Glucose 79 Medical History: Reports:: Hypertension, Renal Insufficiency Denies:: Cancer, Diabetes Mellitus Type 1, Diabetes Mellitus Type 2, Internal Pacemaker, Lung Disease, MRSA, Seizures Assessment and Plan (1) Healthcare-associated pneumonia Current visit: Yes Status: Acute Category: Medical Code(s): J18.9 - Pneumonia, unspecified organism (2) Hyperkalemia Current visit: Yes Status: Acute Category: Medical Code(s): E87.5 - Hyperkalemia (3) Dehydration Current visit: Yes Status: Acute Category: Medical Code(s): E86.0 - Dehydration (4) Acute renal failure Current visit: Yes Status: Acute Qualifiers: Acute renal failure type: unspecified Qualified Code(s): N17.9 - Acute kidney failure, unspecified Category: Medical Code(s): N17.9 - Acute kidney failure, unspecified (5) Anasarca Current visit: Yes Status: Acute Category: Medical Code(s): R60.1 - Generalized edema (6) Chronic renal failure Current visit: Yes Status: Chronic Qualifiers: Chronic kidney disease stage: unspecified stage Qualified Code(s): N18.9 - Chronic kidney disease, unspecified Category: Medical Code(s): N18.9 - Chronic kidney disease, unspecified (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 DOSE WAS HUNG LATER THAN ORDERED DUE TO IV ACCESS. WILL HAVE TOBRAMYCIN TROUGH LEVEL DRAWN AT 48 HOURS POST INFUSION TO DETERMINE CLEARANCE DUE TO PATIENT'S POOR RENAL FUNCTION. IF THE TOBRAMYCIN TROUGH LEVEL IS <1.5 WILL CHANGE DOSE TO 320 MG Q72H AT THAT TIME. PHARMACY WILL FOLLOW DAILY AND ADJUST APPROPRIATE. CHIKI MARSHALL, PHARMD
--- NOTE | 2018-09-02 08:14 | Progress Note ---
<Shabnam Francis - Last Filed: 09/02/18 08:10> Internal Medicine - PN: Subj *Date: 09/02/18 *Time: 08:10 Interval history: Patient is not doing well this morning. According to her nurse, she became nonresponsive last night. She has had agonal breathing this morning. Her family is aware of the serious condition and Dr. Peterson has spoken with them. Exam Vital signs and Labs for Last 24 Hours: Temp Pulse Resp BP Pulse Ox 96.3 F L 78 10 L 104/61 L 95 09/02/18 06:00 09/02/18 07:00 09/02/18 07:00 09/02/18 07:00 09/02/18 07:00 Laboratory Results - last 24 hr 09/01/18 19:54: POC Glucose 112 H 09/02/18 04:06: POC Glucose 125 H I & O for Last 24 hours: Intake & Output 08/30/18 08/31/18 09/01/18 09/02/18 11:59 11:59 11:59 11:59 Intake Total 2852.087 / 2852.087 3321.996 / 3321.996 Output Total / 125 / 125 Balance 2827.087 / 2827.087 3196.996 / 3196.996 Weight 171 lb 1 oz 177 lb - Constitutional Comments: Unresponsive - *Routine Respiratory Exam Present: decreased breath sounds Comments: Agonal breathing - *Routine Cardiovascular Exam Present: RRR - *Routine Abdominal Exam Present: soft, normoactive bowel sounds, distended - *Routine Extremities Exam Present: edema (bilateral LE's) Assessment and Plan (1) Healthcare-associated pneumonia Current visit: Yes Status: Acute Category: Medical Code(s): J18.9 - Pneumonia, unspecified organism (2) Hyperkalemia Current visit: Yes Status: Acute Category: Medical Code(s): E87.5 - Hyperkalemia (3) Dehydration Current visit: Yes Status: Acute Category: Medical Code(s): E86.0 - Dehydration (4) Acute renal failure Current visit: Yes Status: Acute Qualifiers: Acute renal failure type: unspecified Qualified Code(s): N17.9 - Acute kidney failure, unspecified Category: Medical Code(s): N17.9 - Acute kidney failure, unspecified (5) Anasarca Current visit: Yes Status: Acute Category: Medical Code(s): R60.1 - Generalized edema (6) Chronic renal failure Current visit: Yes Status: Chronic Qualifiers: Chronic kidney disease stage: unspecified stage Qualified Code(s): N18.9 - Chronic kidney disease, unspecified Category: Medical Code(s): N18.9 - Chronic kidney disease, unspecified (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 The patient has more family coming into town today and they will discuss her current situation with her son. Will likely need palliative care. <Rolf Peterson - Last Filed: 09/02/18 13:39> Exam Vital signs and Labs for Last 24 Hours: Temp Pulse Resp BP Pulse Ox 98.8 F 59 L 10 L 57/25 L 95 09/02/18 11:15 09/02/18 11:54 09/02/18 11:54 09/02/18 11:54 09/02/18 11:54 Laboratory Results - last 24 hr 09/01/18 19:54: POC Glucose 112 H 09/02/18 04:06: POC Glucose 125 H 09/02/18 08:02: WBC 15.4 H, RBC 2.46 L, Hgb 7.7 L*, Hct 28.4 L, MCV 115.5 H, MCH 31.5 H, MCHC 27.3 L, RDW 14.8, Plt Count 74 L, MPV 8.5, Neut % (Auto) 88.4 H, Lymph % (Auto) 5.4 L, [place] % (Auto) 4.6, Eos % (Auto) 1.0, Baso % (Auto) 0.6, Neut # (Auto) 13.6 H, Lymph # (Auto) 0.8, [place] # (Auto) 0.7, Eos # (Auto) 0.2, Baso # (Auto) 0.1, Total Counted 100, Neutrophils % (Manual) 90 H, Lymphocytes % (Manual) 5 L, Monocytes % (Manual) 5, Platelet Estimate Moderate decrease, RBC Morphology Not Reportable, Macrocytosis 2+, Tear Drop Cells 1+ 09/02/18 08:02: Sodium 134 L, Potassium 7.1 H*, Chloride 106, Carbon Dioxide 20 L, Anion Gap 15.1 H, BUN 79 H, Creatinine 5.80 H, Estimated Creat Clear 10, Estimated GFR 7 L*, Est GFR ( Amer) 9 L*, Glucose 120 H, Calcium 6.9 L I & O for Last 24 hours: Intake & Output 08/31/18 09/01/18 09/02/18 09/03/18 11:59 11:59 11:59 11:59 Intake Total 2852.087 / 2852.087 3321.996 / 3321.996 Output Total 125 / 125 Balance 2827.087 / 2827.087 3196.996 / 3196.996 Weight 171 lb 1 oz 177 lb Assessment and Plan (1) Healthcare-associated pneumonia Current visit: Yes Status: Acute Category: Medical Code(s): J18.9 - Pneumonia, unspecified organism (2) Hyperkalemia Current visit: Yes Status: Acute Category: Medical Code(s): E87.5 - Hyperkalemia (3) Dehydration Current visit: Yes Status: Acute Category: Medical Code(s): E86.0 - Dehydration (4) Acute renal failure Current visit: Yes Status: Acute Qualifiers: Acute renal failure type: unspecified Qualified Code(s): N17.9 - Acute kidney failure, unspecified Category: Medical Code(s): N17.9 - Acute kidney failure, unspecified (5) Anasarca Current visit: Yes Status: Acute Category: Medical Code(s): R60.1 - Generalized edema (6) Chronic renal failure Current visit: Yes Status: Chronic Qualifiers: Chronic kidney disease stage: unspecified stage Qualified Code(s): N18.9 - Chronic kidney disease, unspecified Category: Medical Code(s): N18.9 - Chronic kidney disease, unspecified (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 I spoke with family after her labs results returned showing no improvement in renal function. SHe is requiring continued titration of the Levophed and still not maintaining good pulse pressure. Many family members in attendance including 2 sons and sister and all have decided to withdraw care and do comfort measures only.
[2018-09-02 08:22] LABS: Basophils # 0.1 K/mm3 (0-0.2); Basophils % 0.6 % (0.1-2.0); Eosinophils # 0.2 K/mm3 (0.0-0.4); Hematocrit 28.4 % (37.0-47.0); Lymphocytes # 0.8 K/mm3 (0.7-4.5); Lymphocytes % 5.4 % (10-50); Mean Corpuscular HGB Conc 27.3 g/dL (31.8-35.4); Mean Corpuscular Hemoglobin 31.5 pg (27.0-31.2); Mean Corpuscular Volume 115.5 fl (81-99); Mean Platelet Volume 8.5 fl (7.4-10.4); Monocytes # 0.7 K/mm3 (0.1-1.0); Monocytes % 4.6 % (1.7-9.3); Neutrophils # 13.6 K/mm3 (1.8-7.8); Neutrophils % 88.4 % (37.0-80.0); Red Blood Count 2.46 M/mm3 (4.20-5.40); Red Cell Distribution Width 14.8 % (11.5-17.5); White Blood Count 15.4 K/mm3 (4.8-10.8)
[2018-09-02 08:25] LABS: Anion Gap 15.1 mEq/L (5-15)
[2018-09-02 08:26] LABS: Hemoglobin 7.7 g/dL (12.2-16.2)
[2018-09-02 08:28] LABS: Potassium 7.1 mmoL/L (3.5-5.1)
[2018-09-02 08:29] LABS: Calcium 6.9 mg/dL (8.5-10.1)
[2018-09-02 08:52] LABS: Platelet Count 74 K/mm3 (142-424)
[2018-09-02 08:55] LABS: Lymphocytes % 5 % (10-50); Monocytes % 5 % (2-9); Neutrophils % 90 % (42-76); Total Cells Counted 100
[2018-09-02 08:56] LABS: Macrocytosis 2+; Tear Drop Cells 1+
--- NOTE | 2018-09-05 11:11 | Discharge Summary ---
General - General Admission date:: 08/31/18 Discharge date: 09/02/18 HPI HPI: Ms. 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 She was not on dialysis. She sees Dr. Barnhart for cirrhosis and Dr. Berg for renal failure. She had routine blood drawn 2 days ago and was called today and told her potassium level was 6.6 and to go to the emergency room. She has been feeling really weak for several days. She has a paracentesis performed every 2 weeks for ascites, last done about 2 weeks ago. Upon evaluation in the ER she was found to have a RLL pneumonia as well. She will be admitted for further evaluation and treatment. The son is with patient and states that they went shopping on 08/27/2018 after which she just felt tired. By she was feeling very weak and was not eating and drinking well. Patient denies chest pain and shortness of breath. She does have a cough. She states she was barely able to walk around. She does deny nausea although she has vomited a couple of times. Last bowel movement was this morning and was loose. She continues to void. While in the emergency room temperature was found to be 94 and she was placed on a warming blanket. Blood pressure did drop into the low 80s systolically and she was started on a Levophed drip after receiving 2 L of IV fluids. Hospital Course Hospital Course: The patient was continued on her Levophed drip, 3 antibiotics were initiated, and she was started on duo nebs. The patient did have an episode of shallow agonal breathing and her son therefore signed so that she would not receive CPR chest compressions, electric cardioversion, or intubation as he was her power of test engineering manager. The patient's renal function continued to worsen and her potassium continued to elevate. She became nonresponsive. The family decided to withdraw care and provide only comfort measures. The patient then . Objective Vital signs: Temp Pulse Resp BP Pulse Ox 98.8 F 38 L 10 L 57/25 L 95 09/02/18 11:15 09/02/18 13:54 09/02/18 11:54 09/02/18 11:54 09/02/18 11:54 Narrative: - Constitutional moderate distress, thin Comments: Appears not to feel well. Lying on stretcher with her eyes closed. Assist with exam. Does respond and open her eyes and speaks softly and coherently. - *Routine HEENT Exam Head: Present: normocephalic, atraumatic Eye: Present: PERRL. Absent: conjunctival icterus ENT: Present: mucous membranes moist (Tongue is moist), oropharynx clear, TM's clear bilaterally - *Routine Neck Exam Absent: carotid bruit, lymphadenopathy, thyromegaly - *Routine Respiratory Exam Present: CTA bilaterally (Anteriorly) - *Routine Cardiovascular Exam Present: RRR Comments: Monitor showing sinus rhythm in the 60s and 70s - *Routine Abdominal Exam Present: soft. Absent: tenderness Comments: Ascites - *Routine Extremities Exam Present: edema Comments: Bilateral leg edema - *Routine Skin Exam Present: dry (Warm; patient is on warming blanket.) - *Routine Neurological Exam Present: alert Results Labs on day of discharge: Preliminary micro results at discharge 08/31/18 13:46 Blood Culture - Preliminary Blood NO GROWTH AFTER 48 HOURS 08/31/18 13:46 Blood Culture - Preliminary Blood NO GROWTH AFTER 48 HOURS DS: Diagnosis - Discharge Diagnosis (1) Healthcare-associated pneumonia Status: Acute (2) Hyperkalemia Status: Acute (3) Dehydration Status: Acute (4) Acute renal failure Status: Acute (5) Anasarca Status: Acute (6) Chronic renal failure Status: Chronic (7) Non-alcoholic cirrhosis Status: Chronic (8) Hypertension Status: Chronic (9) Hypothyroid Status: Chronic (10) Hypotension Status: Acute Discharge Plan - Patient Discharge Instructions Patient Instructions: Pneumonia-Adult, Dehydration, Acute Renal Failure, DI for Hypotension, Hyperkalemia - Follow up Plan Disposition: Home Medications: Home Medications Medication Instructions Recorded Confirmed Type Acetaminophen [Tylenol 500mg 400 mg PO DAILY PRN 03/31/18 08/31/18 History tablet] Atenolol [Atenolol 50mg Tab] 50 mg PO DAILY 03/31/18 08/31/18 History Calcium Carbonate [Calcium] 500 mg PO DAILY 03/31/18 08/31/18 History Cholecalciferol (Vitamin D3) 50,000 unit PO DAILY 03/31/18 08/31/18 History [Vitamin D3 50,000 unit Cap] Ferrous Sulfate 325 mg PO BID 03/31/18 08/31/18 History Furosemide [Furosemide 40MG tAB] 40 mg PO DAILY 03/31/18 08/31/18 History Levothyroxine Sodium 50 mcg PO DAILY 03/31/18 08/31/18 History [Levothyroxine 50mcg (0.05mg) Tab] Spironolactone 100 mg PO DAILY 03/31/18 08/31/18 History Rifaximin [Xifaxan] 550 mg PO DAILY 08/31/18 08/31/18 History Prescriptions/Medication Reconciliation: No Action Furosemide [Furosemide 40MG tAB] 40 mg PO DAILY Spironolactone 100 mg PO DAILY Ferrous Sulfate 325 mg PO BID Cholecalciferol (Vitamin D3) [Vitamin D3 50,000 unit Cap] 50,000 unit PO DAILY Calcium Carbonate [Calcium] 500 mg PO DAILY Atenolol [Atenolol 50mg Tab] 50 mg PO DAILY Acetaminophen [Tylenol 500mg tablet] 400 mg PO DAILY PRN PRN Reason: pain Rifaximin [Xifaxan] 550 mg PO DAILY Levothyroxine Sodium [Levothyroxine 50mcg (0.05mg) Tab] 50 mcg PO DAILY
== END 2018-09-02 15:34 | disposition expired ==
LOC: ER 13:43 → 2ND 15:46 → ICU 09-01 16:38
PROVIDERS: ADMIT Family Medicine; ATTEND Family Medicine